=== PATIENT | male | born 1975 | race Caucasian/White ===

== ENCOUNTER 2018-10-22 13:01 | Emergency (ER) | payer MEDICAID ==
[~2018-10-22] VITALS: Ht 185.4 cm; Wt 159.6 kg
--- NOTE | 2018-10-22 14:15 | NUR ---
PT REPORTS HE GETS HIS MEDS FROM [facility] ON [facility] [phone]. [facility] WILL FAX THE MEDS.
[2018-10-22] MEDS ORDERED: LORazepam 2 mg/ml vial IM ONE (14:35)
--- NOTE | 2018-10-22 14:45 | NUR ---
Patient was standing at opening of room, sweating profusely and anxious. RN spoke with Dr Mcbride who ordered I.M. Ativan. Patient is c/o suicidal ideation and doesn't feel safe to go home. Dr Mcbride to place 179 on patient. Continue to monitor.
--- NOTE | 2018-10-22 15:30 | NUR ---
Patient feeling better post medication. Continue to monitor.
[2018-10-22 15:46] LABS: URINE AMPHETAMINE SCREEN NEGATIVE (Neg); URINE BARBITUATE SCREEN NEGATIVE (Neg); URINE BENZODIAZEPINES SCREEN POSITIVE (Neg); URINE CANNABINOID SCREEN POSITIVE (Neg); URINE COCAINE SCREEN NEGATIVE (Neg); URINE METHADONE SCREEN NEGATIVE (Neg); URINE OPIATE SCREEN NEGATIVE (Neg); URINE PHENCYCLIDINE SCREEN NEGATIVE (Neg)
[2018-10-22 15:55] LABS: BASOPHILS # (AUTO) 0.1 X10'3 (0-0.2); BASOPHILS % (AUTO) 0.6 % (0-1); EOSINOPHILS # (AUTO) 0.1 X10'3 (0-0.9); EOSINOPHILS % (AUTO) 1.1 % (0-6); HEMATOCRIT 43.2 % (42.0-52.0); HEMOGLOBIN 14.6 g/dl (14.0-17.9); LYMPHOCYTES # (AUTO) 1.8 X10'3 (1.1-4.8); LYMPHOCYTES % (AUTO) 14.6 % (21-51); MEAN CORPUSCULAR HEMOGLOBIN 28.8 PG (27.0-31.0); MEAN CORPUSCULAR HGB CONC 33.9 g/dL (33.0-36.5); MEAN CORPUSCULAR VOLUME 85.1 FL (78-98); MEAN PLATELET VOLUME 9.3 FL (7.4-10.4); MONOCYTES # (AUTO) 1.1 X10'3 (0-0.9); MONOCYTES % (AUTO) 9.2 % (2-12); NEUTROPHILS # (AUTO) 9.1 X10'3 (1.8-7.7); NEUTROPHILS % (AUTO) 74.5 % (42-75); PLATELET COUNT 286 X10'3 (140-440); RED BLOOD COUNT 5.08 X10'6 (4.70-6.10); RED CELL DISTRIBUTION WIDTH 13.7 % (11.5-14.5); WHITE BLOOD COUNT 12.2 X10'3 (4.5-11.0)
[2018-10-22] MEDS ORDERED: SERT50TA PO (16:07)
[2018-10-22] MEDS ORDERED: LORA1TAB PO (16:07)
[2018-10-22] MEDS ORDERED: CLON-529 PO (16:07)
[2018-10-22] MEDS ORDERED: OLAN5TAB5 PO (16:07)
[2018-10-22] MEDS ORDERED: LURA40TA3 PO (16:07)
[2018-10-22 16:09] LABS: ALANINE AMINOTRANSFERASE 53 U/L (12-78); ALBUMIN 4.2 G/DL (3.4-5.0); ALKALINE PHOSPHATASE 82 IU/L (46-116); ANION GAP 14 (8-16); ASPARTATE AMINO TRANSFERASE 65 U/L (10-37); BILIRUBIN,TOTAL 0.8 MG/DL (0.1-1.0); BLOOD UREA NITROGEN 6 MG/DL (7-18); BUN/CREATININE RATIO 5.8 (5.4-32.0); CHLORIDE 89 MMOL/L (99-107); CREATININE 1.03 MG/DL (0.60-1.10); ETHANOL < 0.010 GM/DL (0.0-0.010); GLUCOSE 107 MG/DL (70-104); SODIUM 129 MMOL/L (135-145); TOTAL CARBON DIOXIDE 25.7 MMOL/L (24-32); TOTAL PROTEIN 8.4 G/DL (6.4-8.2); eGFR 78 ML/MIN
[2018-10-22 16:13] LABS: ACETAMINOPHEN < 2.0 UG/ML (10-30)
[2018-10-22 16:15] LABS: POTASSIUM 2.8 MMOL/L (3.5-5.1)
[2018-10-22] MEDS ORDERED: potassium Cl 20 mEq SR tablet PO STA ×2 (16:17→17:51)
--- NOTE | 2018-10-22 16:50 | NUR ---
RN speaking to patient and patient started to disassociate for 30 seconds to a minute. Patient could not handle the stress of RN talking about his plan. Patient states he feels suicidal and doesn't feel safe to go home. Continue to monitor.
[2018-10-22] MEDS: normal saline 1000ML IV soln IVB ONE ×2 (18:08→19:47)
[2018-10-22] MEDS ORDERED: magnesium oxide 400mg tablet PO ONE (18:15)
[2018-10-22 18:21] LABS: MAGNESIUM 1.9 MG/DL (1.5-2.4)
[2018-10-22] MEDS ORDERED: diphenhydrAMINE 50 mg/ml inj IV ONE (19:30)
[2018-10-22] MEDS: cloNIDine 0.1 mg tablet PO SCH (21:09)
[2018-10-22] MEDS: LORazepam 1 MG tablet PO SCH (21:10)
[2018-10-22] MEDS: lurasidone 20mg tablet PO SCH (21:10)
[2018-10-22] MEDS: OLANZapine 5mg rapidly disint. tablet PO SCH (21:10)
--- NOTE | 2018-10-23 06:45 | NUR ---
pt resting in room quietly.
[2018-10-23] MEDS: cloNIDine 0.1 mg tablet PO SCH ×3 (07:07→20:44)
[2018-10-23] MEDS: LORazepam 1 MG tablet PO SCH ×3 (07:07→20:44)
[2018-10-23] MEDS: sertraline 50mg tablet PO SCH (07:09)
--- NOTE | 2018-10-23 07:15 | NUR ---
pt requesting Wilder for chronic back pain. Med is not currently ordered, will look into it. Addendum: 10/23/18 at 0820 by KRYSTEN pt states he takes Wilder 10-325 at home for chronic back pain. Will place med on [facility] med list. Addendum: 10/23/18 at 0908 by KRYSTEN Wilder ordered and given
[2018-10-23] MEDS ORDERED: potassium Cl 20 mEq SR tablet PO ONE (08:00)
[2018-10-23] MEDS ORDERED: HYDR-4353 PO (08:18)
--- NOTE | 2018-10-23 08:19 | NUR ---
pt talking to [facility] in room.
[2018-10-23] MEDS ORDERED: HYDROcodone/acetaminophen 10/325mg tab PO ONE (08:25)
--- NOTE | 2018-10-23 11:35 | NUR ---
pt came to nurses station asking for Ativan, states he's anxious. Notified pt Ativan not due util 1300. Pt verbalized understanding. Appears to be calm. Walked back to his bed.
--- NOTE | 2018-10-23 14:34 | NUR ---
pt came to nurses station and stated he was having some visual hallucinations. States the otero on the curtains are starting to look like people. Notified Dr. Jag MD stated we'll watch him for now. Pt notified to let RN know if hallucinations continue or get worse. Will continue to monitor pt.
--- NOTE | 2018-10-23 17:36 | NUR ---
pt requesting his home dose of Klonopin, states it works better for his anxiety than the Ativan. He usually just takes Ativan to supplement the Klonopin at home. Notified Dr. 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
[2018-10-23] MEDS: clonazePAM 1mg tablet PO PRN (17:48)
[2018-10-23] MEDS ORDERED: ibuprofen tablet 400 MG TABLET PO ONE (19:45)
[2018-10-23] MEDS: lurasidone 20mg tablet PO SCH (20:45)
[2018-10-23] MEDS: OLANZapine 5mg rapidly disint. tablet PO SCH (20:45)
[2018-10-24] MEDS: sertraline 50mg tablet PO SCH (06:55)
[2018-10-24] MEDS: cloNIDine 0.1 mg tablet PO SCH ×3 (06:55→21:01)
[2018-10-24] MEDS: LORazepam 1 MG tablet PO SCH ×3 (06:56→21:01)
--- NOTE | 2018-10-24 07:00 | NUR ---
Pt was noted to be up fidgeting with blankets and pacing next to bed. Pt requesting Ativan. Pts AM meds administered.
--- NOTE | 2018-10-24 07:55 | NUR ---
Pt reports chronic back pain and reports he is prescribed Bedford 10/325mg tab and is able to take one daily. Pt reports he takes in the AM as back is most painful after sleeping/laying on his back for period of time. Verified last refill was 09/09/18. Received VO for Bedford 10/325mg PO 1 tab daily and Motrin 600mg PO Q 8hrs PRN pain.
[2018-10-24] MEDS: HYDROcodone/acetaminophen 10/325mg tab PO SCH (08:53)
[2018-10-24] MEDS: ibuprofen 200mg tablet PO PRN ×2 (08:54→22:14)
[2018-10-24] MEDS: clonazePAM 1mg tablet PO PRN ×2 (11:02→19:33)
--- NOTE | 2018-10-24 12:50 | NUR ---
Reviewed pt K+ value of 2.[address] Rm. Pt to receive oral potassium and have lab redrawn in AM.
[2018-10-24] MEDS ORDERED: potassium Cl 20 mEq SR tablet PO STA (12:51)
--- NOTE | 2018-10-24 14:14 | NUR ---
PT RESTING ON RIGHT SIDE IN POC AT THIS TIME. FREQUENTLY CHANGING POSITIONS SIDE TO SIDE IN BED HE SAYS IS R/T HIS BACK PAIN. NOW UP TO BR. ATE ALL OF LUNCH.
--- NOTE | 2018-10-24 14:18 | NUR ---
PT UP TO RN DESK ASKING TO USE PHONE TO CALL HIS MOTHER. ATTEMPTED BUT STRAIGHT TO VOICEMAIL. HE LEFT ONE MESSAGE. REMAINS CALM AND COOPERATIVE.
--- NOTE | 2018-10-24 15:33 | NUR ---
RETRIEVED PTS CELL PHONES FROM [facility] TO OBTAIN NUMBERS FOR PT. PT WROTE NUMBERS DOWN AND PHONES RETURNED TO LOCKED UP BELONGINGS.
--- NOTE | 2018-10-24 18:58 | NUR ---
Pt's mother Kamille called from [facility] wanting to know if the pt was still going to be DC'd on Thursday. States that he will be living with father in a controlled/stable environment. Advised I did not have this information as of yet and I would be happy to find out and call her back. States she will hold off on purchasing ticket. Her phone is dying and would like a message back as to the plan. Phone number [phone].
--- NOTE | 2018-10-24 19:59 | NUR ---
Pt denies suicidal thoughts or intention at this time. States he moved to [facility] recently and had planned to go to school in the area. His therapist recently dropped him from care back in january. His move to the area and going through the process of beginning school made his anxiety increase and he did not have medications to assist him. States he is planning to move back with this mother and father in [place] where he will have better support. States his mother and father are good people. Denies visual or auditory hallucinations at this time.
--- NOTE | 2018-10-24 20:38 | NUR ---
Mother Nusrat called again wanting information as to the patients DC on Thursday. Advised I could not provide further information at this time and will give her a call back when more information is available to me.
--- NOTE | 2018-10-24 20:39 | NUR ---
Spoke to Duncan from [facility]. States the patient is on a 5150 which will Thursday. Packets have been sent to local mental health facilities for placement. There is no indication that he will be realeased from this facility on Thursday as the mother is wishing. Will call the mother to inform.
--- NOTE | 2018-10-24 20:40 | NUR ---
Called and left message for mother Nusrat to contact us in regards to unknown DC plan per previous note. [phone]
[2018-10-24] MEDS: OLANZapine 5mg rapidly disint. tablet PO SCH (21:01)
[2018-10-24] MEDS: lurasidone 20mg tablet PO SCH (21:01)
[2018-10-25] MEDS: clonazePAM 1mg tablet PO PRN ×2 (05:33→12:04)
[2018-10-25 08:29] LABS: ALBUMIN 3.7 G/DL (3.4-5.0); ANION GAP 10 (8-16); BLOOD UREA NITROGEN 6 MG/DL (7-18); BUN/CREATININE RATIO 5.6 (5.4-32.0); CALCIUM 8.5 MG/DL (8.5-10.1); CHLORIDE 102 MMOL/L (99-107); CREATININE 1.07 MG/DL (0.60-1.10); GLUCOSE 108 MG/DL (70-104); POTASSIUM 3.4 MMOL/L (3.5-5.1); SODIUM 140 MMOL/L (135-145); TOTAL CARBON DIOXIDE 28.2 MMOL/L (24-32); eGFR 75 ML/MIN
[2018-10-25] MEDS: HYDROcodone/acetaminophen 10/325mg tab PO SCH (09:02)
[2018-10-25] MEDS: LORazepam 1 MG tablet PO SCH ×3 (09:02→20:47)
[2018-10-25] MEDS: cloNIDine 0.1 mg tablet PO SCH ×3 (09:02→20:48)
[2018-10-25] MEDS: sertraline 50mg tablet PO SCH (09:03)
[2018-10-25 16:59] VITALS: BP 129/81
[2018-10-25] MEDS: ibuprofen 200mg tablet PO PRN (17:33)
[2018-10-25] MEDS: OLANZapine 5mg rapidly disint. tablet PO SCH (20:48)
[2018-10-25] MEDS: lurasidone 20mg tablet PO SCH (20:48)
[2018-10-25] MEDS ORDERED: CLON-527 PO (21:36)
[2018-10-25] MEDS ORDERED: IBUP-1985 PO (21:36)
== END 2018-10-25 21:40 ==
LOC: ER 13:02
DX: R45.851 Suicidal ideations (principal); E87.6 Hypokalemia; K46.9 Unspecified abdominal hernia without obstruction or gangrene; Z87.891 Personal history of nicotine dependence; Z60.2 Problems related to living alone; Z88.8 Allergy status to other drugs, medicaments and biological substances; Z79.899 Other long term (current) drug therapy
CPT/HCPCS: 36415; 80053; 80305; 80320; 80329; 83735; 84443; 85025; 96372; 96374; 99285; J1200; J2060; J7030; 80048

== ENCOUNTER 2018-10-25 20:37 | Inpatient (IN) | payer MEDICAID ==
[~2018-10-25] VITALS: Ht 182.9 cm; Wt 162.9 kg
[~2018-10-25 20:37] MED LIST: CLON-529 PO; HYDR-4353 PO; LORA1TAB PO; LURA40TA3 PO; OLAN5TAB5 PO; SERT50TA PO
[2018-10-25] MEDS ORDERED: loperamide 2mg capsule PO PRN (21:25)
[2018-10-25] MEDS ORDERED: LORazepam 1 MG tablet PO PRN (21:25)
[2018-10-25] MEDS ORDERED: IBUP-1985 PO (21:36)
[2018-10-25] MEDS ORDERED: CLON-527 PO (21:36)
[2018-10-25] MEDS: hydrOXYzine 25 MG tablet PO PRN (23:53)
[2018-10-26] MEDS ORDERED: clonazePAM 1mg tablet PO PRN (00:15)
[2018-10-26] MEDS ORDERED: HYDROcodone/acetaminophen 10/325mg tab PO SCH (02:00)
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
[2018-10-26] MEDS: LORazepam 1 MG tablet PO SCH ×2 (07:59→12:13)
[2018-10-26] MEDS: cloNIDine 0.1 mg tablet PO SCH ×3 (07:59→20:16)
[2018-10-26] MEDS: sertraline 50mg tablet PO SCH (07:59)
[2018-10-26] MEDS: HYDROcodone/acetaminophen 10/325mg tab PO SCH (08:00)
[2018-10-26] MEDS: nicotine 21mg patch - 24 hr TD SCH (08:01)
[2018-10-26 08:18] LABS: HEMOGLOBIN A1C 5.3 % (4.5-6.2)
[2018-10-26 08:22] LABS: CHOL/HDL RATIO 4.7 (0.00-4.99); CHOLESTEROL 118 MG/DL (0-200); HDL CHOLESTEROL 25 MG/DL (35-60); LDL CHOLESTEROL 75 MG/DL (50-100); TRIGLYCERIDES 142 MG/DL (20-135)
[2018-10-26] MEDS ORDERED: pneumococcal 23-VAL P-sac vacc 25 mcg/0.5ml vial IMVAC ONE (10:00)
--- NOTE | 2018-10-26 13:03 | NUR ---
Nursing Progress Note: Legal hold:5150 Client on involuntary status for DTS Why are they here:The patient is a 42 year old male who presents to the ED with complaints of depression. The patient states that he has been out of his medications for two weeks and reports that he is "suffering". The patient does not have a plan currently to kill himself. He states that he "does not feel safe". The patient notes that he has experienced decrease energy and he does not want to do things that he previously enjoyed. The patient states that he "doesn't have any hope". The patient did not want to wait for his next psychiatric appointment so he called the office and they told him to present to the ED. Assessment What happened today: Patient Slept until breakfast time and medications. Pt. is very polite and pleasant. States that he is just very tired. He went off his meds for two weeks and was hallucinations during his stay in ER, but denies AH/VH. Patient requesting prns due to anxiety when he feels like he is going to lose it. Patient appears very depressed. Plans on moving back to [place] to have family support. Patient is still distressed over his divorce in 2014 and becomes tearful while discussing end of marriage. Dr. Galloway ordered pulse oximetry during the night to keep track of 02 Sat. S/I, H/I: denies A/VH: denies Sleep: sleeps poorly, also reports does not wear cpap ADL's: does not keep up with ADLs Group attendance: no Were meds taken: yes Any med S/E none reported Mental Status Exam Appearance: tall bearded man, disheveled, oily hair, malodorous, poor hygeine, adequately dressed wearing green scrub gowns. Eye contact: good Behavior: cooperative, Speech: normal rate and rhythm Mood:anxious, depressed, hopeless Affect: constricted, withdrawn Thought process: linear Thought Content: talking about worrying about his mom, worrying about not caring for himself. Cognition: a/o x4 Insight:fair Judgment: poor Interventions PRN's used: Ativan Therapeutic interventions: 1:1 assessment, administered medications Restraints/seclusion/emergency medication: none Justification of Continued Inpatient Treatment: interrupt current crisis, maintain safety of patient. Continued therapeutic support and medication management needed to provide stabilization, prevent decompensation, decreasing risk to patient and readmittance.
--- NOTE | 2018-10-26 13:15 | NUR ---
Malnutrition consult: Patient is eating 100% of meals so far, good appetite, no edema, no weight history however patient reports weight loss recently of 34 or more lbs. Pt appears well nourished. No muscle weakness. No malnutrition at this time. Addendum: 10/26/18 at [address] Amended: Links added.
[2018-10-26] MEDS: ibuprofen 200mg tablet PO PRN (16:17)
[2018-10-26] MEDS: gabapentin 300mg capsule PO SCH (20:16)
[2018-10-26] MEDS: clonazePAM 1mg tablet PO SCH (20:17)
--- NOTE | 2018-10-26 20:31 | NUR ---
Nursing Progress Note: Legal hold:5150 Client on involuntary status for DTS Why are they here:The patient is a 42 year old male who presents to the ED with complaints of depression. The patient states that he has been out of his medications for two weeks and reports that he is "suffering". The patient does not have a plan currently to kill himself. He states that he "does not feel safe". The patient notes that he has experienced decrease energy and he does not want to do things that he previously enjoyed. The patient states that he "doesn't have any hope". The patient did not want to wait for his next psychiatric appointment so he called the office and they told him to present to the ED. Assessment What happened today: pt was laying in bed at change of shift. Pt denies s/i, continues to feel hopeless and depressed. He inquires if a surgery can be done to repair his hernia while he is here. Explained to pt that we can probably assist with making appts to have him see a doctor once his hold expires but it wouldnt be likely that he would go for surgery while he is on a hold. Pt understands, explained to pt I would pass this along in report. Pt reports feeling anxious but states it's "not to bad, medicine helps." Pt reports appetite is good and he slept "Ok" last night. SP02 is being monitored this shift as pt reports not wearing cpap at home due to uncomfortable mask. S/I, H/I: denies A/VH: denies Sleep: sleeps poorly, also reports does not wear cpap ADL's: does not keep up with ADLs Group attendance: no Were meds taken: yes Any med S/E none reported Mental Status Exam Appearance: tall bearded man, disheveled, oily hair, malodorous, poor hygeine, adequately dressed wearing street clothes Eye contact: good Behavior: cooperative, isolates to his room Speech: normal rate and rhythm Mood:anxious, depressed, hopeless Affect: constricted, withdrawn Thought process: linear Thought Content: taking care of himself better, getting hernia repaired Cognition: a/o x4 Insight:fair Judgment: poor Interventions PRN's used: Ativan Therapeutic interventions: 1:1 assessment, administered medications Restraints/seclusion/emergency medication: none Justification of Continued Inpatient Treatment: interrupt current crisis, maintain safety of patient. Continued therapeutic support and medication management needed to provide stabilization, prevent decompensation, decreasing risk to patient and readmittance. Addendum: 10/26/18 at 2143 by Martha Arora RN pt reports feeling hungry and anxious that medication changes wont help him sleep. Pt was encouraged to have snack in the group room but saw other patients in the group room and returned to his room. Pt had snack in his room.
[2018-10-26] MEDS ORDERED: lurasidone 20mg tablet PO SCH (21:00)
[2018-10-26] MEDS ORDERED: OLANZapine 5mg rapidly disint. tablet PO SCH (21:00)
[2018-10-26] MEDS ORDERED: OLANZapine 5mg rapidly disint. tablet PO ONE (22:15)
[2018-10-27] MEDS: hydrOXYzine 25 MG tablet PO PRN ×3 (04:33→17:02)
[2018-10-27] MEDS ORDERED: PALIPERIDONE 3 MG TAB.ER.24 PO SCH (06:56)
[2018-10-27] MEDS: mag hydrox/Alum hydrox/simeth 30ml oral suspension PO PRN (07:13)
[2018-10-27] MEDS: cloNIDine 0.1 mg tablet PO SCH ×3 (08:02→20:50)
[2018-10-27] MEDS: HYDROcodone/acetaminophen 10/325mg tab PO SCH (08:03)
[2018-10-27] MEDS: gabapentin 300mg capsule PO SCH ×2 (08:03→12:13)
[2018-10-27] MEDS: clonazePAM 1mg tablet PO SCH ×2 (08:04→19:53)
[2018-10-27] MEDS: sertraline 50mg tablet PO SCH (08:04)
[2018-10-27] MEDS: nicotine 21mg patch - 24 hr TD SCH (08:04)
[2018-10-27] MEDS: NICOTINE POLACRILEX 2 MG LOZENGE BC PRN ×2 (11:28→18:07)
[2018-10-27] MEDS: ibuprofen 200mg tablet PO PRN (12:13)
--- NOTE | 2018-10-27 17:29 | NUR ---
Nursing Progress Note: Received report via SBAR from KATARINA [facility] Legal hold:[id number] Client on involuntary status for DTS Why are they here:The patient is a 42 year old male who presents to the ED with complaints of depression. The patient states that he has been out of his medications for two weeks and reports that he is "suffering". The patient does not have a plan currently to kill himself. He states that he "does not feel safe". The patient notes that he has experienced decrease energy and he does not want to do things that he previously enjoyed. The patient states that he "doesn't have any hope". The patient did not want to wait for his next psychiatric appointment so he called the office and they told him to present to the ED. Assessment What happened today: Pt sitting on edge of bed reading bible at change of shift. He is pleasant and cooperative with care. He reports he has an upset stomach and requests something. Maalox and saltines were given with good relief. He denies S/I, A/H, V/H, states he realizes that "there is a lot to live for". He is excited about going to his dad's house after leaving here. He states the backyard is big and he is thinking of getting a dog for companionship. Pt reports feeling anxious but states it's "not too bad, medicine helps." Pt reports appetite is good and he slept "Ok" last night. SP02 was being monitored last shift as pt reports not wearing cpap at home due to uncomfortable mask. Lowest O2 recorded was 92%. He reports that he is anxious throughout the day and atarax and chamomile tea were given. He is concerned with thoughts of how things will be when he leaves here. Pt reports that he is spiritual and praying and reading the bible are therapeutic for him. Encouraged Pt to focus on the now and use prayer, breathing exercises to help with the feelings of anxiety. He agrees to this. S/I, H/I: denies A/VH: denies Sleep: naps intermittently throughout the day ADL's: does not keep up with ADLs Group attendance: no Were meds taken: yes Any med S/E none reported Mental Status Exam Appearance: tall bearded man, disheveled, oily hair, malodorous, poor hygeine, adequately dressed wearing street clothes Eye contact: good Behavior: cooperative, isolates to his room Speech: normal rate and rhythm Mood:anxious, depressed, hopeless Affect: constricted, withdrawn Thought process: linear Thought Content: taking care of himself better, getting hernia repaired Cognition: a/o x4 Insight:fair Judgment: poor Interventions PRN's used: Maalox, Atarax x2 Therapeutic interventions: 1:1 assessment, administered medications Restraints/seclusion/emergency medication: none Justification of Continued Inpatient Treatment: interrupt current crisis, maintain safety of patient. Continued therapeutic support and medication management needed to provide stabilization, prevent decompensation, decreasing risk to patient and readmittance.
--- NOTE | 2018-10-27 19:57 | NUR ---
Nursing Progress Note: Received report via SBAR from KATARINA HE Legal hold:[id number] Client on involuntary status for DTS Why are they here:The patient is a 42 year old male who presents to the ED with complaints of depression. The patient states that he has been out of his medications for two weeks and reports that he is "suffering". The patient does not have a plan currently to kill himself. He states that he "does not feel safe". The patient notes that he has experienced decrease energy and he does not want to do things that he previously enjoyed. The patient states that he "doesn't have any hope". The patient did not want to wait for his next psychiatric appointment so he called the office and they told him to present to the ED. Assessment What happened today: Pt was sitting in a chair in the [place] at change of shift awaiting a phone to call his mother. Pt reports anxiety 5/10, but states he is using coping skills to work on anxiety and is feeling positive that things will improve for him. Pt states his mother looked up invega and he is hopeful this will be a good medicine for him. He also reports his dad has a room in [place] for him when he is doing better. He reports his mood is a little better today, he also states he is noticing less joint pain in his shoulder and thinks this is due to the gabapentin. Pt continues to isolate in his room but does spend some time sitting in the [place] out of his room. Pt reports appetite is fair and he slept fairly well last night despite SpO2 monitoring. S/I, H/I: denies A/VH: denies Sleep: good trouble falling asleep ADL's: encouraged shower/hygiene, pt responds saying he will when he is feeling better Group attendance: no evening groups Were meds taken: yes Any med S/E none reported Mental Status Exam Appearance: tall bearded man, disheveled, oily hair, malodorous, poor hygeine, adequately dressed wearing street clothes Eye contact: good Behavior: cooperative, isolates to his room Speech: normal rate and rhythm Mood:anxious, depressed, hopeful Affect: constricted, Thought process: linear Thought Content: getting well so he can return to [place] Cognition: a/o x4 Insight:fair Judgment: poor Interventions PRN's used: none Therapeutic interventions: 1:1 assessment, administered medications Restraints/seclusion/emergency medication: none Justification of Continued Inpatient Treatment: interrupt current crisis, maintain safety of patient. Continued therapeutic support and medication management needed to provide stabilization, prevent decompensation, decreasing risk to patient and readmittance.
[2018-10-27] MEDS: gabapentin 400mg capsule PO SCH (20:50)
[2018-10-28] MEDS: hydrOXYzine 25 MG tablet PO PRN ×3 (01:16→19:16)
[2018-10-28] MEDS: ibuprofen 200mg tablet PO PRN ×2 (01:16→15:25)
[2018-10-28] MEDS: clonazePAM 1mg tablet PO SCH ×2 (07:25→19:15)
[2018-10-28] MEDS: HYDROcodone/acetaminophen 10/325mg tab PO SCH (07:27)
[2018-10-28] MEDS: sertraline 50mg tablet PO SCH (07:27)
[2018-10-28] MEDS: cloNIDine 0.1 mg tablet PO SCH ×3 (07:28→21:09)
[2018-10-28] MEDS: PALIPERIDONE 3 MG TAB.ER.24 PO SCH (07:28)
[2018-10-28] MEDS: gabapentin 400mg capsule PO SCH ×2 (07:28→13:15)
[2018-10-28] MEDS: nicotine 21mg patch - 24 hr TD SCH (07:30)
[2018-10-28 08:15] VITALS: BP 140/75
[2018-10-28] MEDS: NICOTINE POLACRILEX 2 MG LOZENGE BC PRN ×2 (09:13→14:04)
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
[2018-10-28 20:00] VITALS: BP 130/76
[2018-10-28] MEDS: gabapentin 300mg capsule PO SCH (21:09)
--- NOTE | 2018-10-29 00:24 | NUR ---
Nursing Progress Note: Received report via SBAR from KATARINA [employer] hold:[id number] Client on involuntary status for DTS Why are they here:The patient is a 42 year old male who presents to the ED with complaints of depression. The patient states that he has been out of his medications for two weeks and reports that he is "suffering". The patient does not have a plan currently to kill himself. He states that he "does not feel safe". The patient notes that he has experienced decrease energy and he does not want to do things that he previously enjoyed. The patient states that he "doesn't have any hope". The patient did not want to wait for his next psychiatric appointment so he called the office and they told him to present to the ED. Assessment What happened today: Pt was placed on a 5250, paperwork completed, pt signed. Pt said he had a tough evening due to a difficult conversation with his father. Pt requested klonopin which was given, due to the anxiety that the conversation caused. " I am not feeling suicidal right now, I am just really down, pretty depressed." "I guess that is life though." He is reserved in conversation, answers questions appropriately but does not go into any detail about the conversation between him and his father. "I am just trying to relax and hopefully get some sleep to have a better day tomorrow." S/I, H/I: denies A/VH: denies Sleep: see sleep assessment notation ADL's: encouraged shower/hygiene, pt responds saying he will when he is feeling better Group attendance: no evening groups Were meds taken: yes Any med S/E none reported, none observed Mental Status Exam Appearance: tall bearded man, disheveled, oily hair, malodorous, poor hygeine, adequately dressed wearing street clothes Eye contact: fair Behavior: cooperative, isolates to his room Speech: normal rate and rhythm Mood:anxious, depressed Affect: constricted, depressed Thought process: linear Thought Content: getting well so he can return to [facility] Cognition: a/o x4 Insight:fair Judgment: poor Interventions PRN's used: klonopin Therapeutic interventions: 1:1 assessment, administered medications, Q15 minute safety checks Restraints/seclusion/emergency medication: none Justification of Continued Inpatient Treatment: interrupt current crisis, maintain safety of patient. Continued therapeutic support and medication management needed to provide stabilization, prevent decompensation, decreasing risk to patient and readmittance.
[2018-10-29 07:00] VITALS: BP 135/81
[2018-10-29] MEDS: PALIPERIDONE 3 MG TAB.ER.24 PO SCH (07:19)
[2018-10-29] MEDS: nicotine 21mg patch - 24 hr TD SCH (07:19)
[2018-10-29] MEDS: sertraline 50mg tablet PO SCH (07:20)
[2018-10-29] MEDS: HYDROcodone/acetaminophen 10/325mg tab PO SCH (07:20)
[2018-10-29] MEDS: clonazePAM 1mg tablet PO SCH ×2 (07:20→18:58)
[2018-10-29] MEDS: gabapentin 300mg capsule PO SCH ×3 (07:20→20:32)
[2018-10-29] MEDS: cloNIDine 0.1 mg tablet PO SCH ×3 (07:20→20:32)
[2018-10-29] MEDS: hydrOXYzine 25 MG tablet PO PRN ×2 (11:49→18:18)
--- NOTE | 2018-10-29 15:06 | NUR ---
DISCHARGE PLANNING: Waiting for call back from telepsych doctor to confirm date and time of appointment
--- NOTE | 2018-10-29 15:16 | NUR ---
Nursing Progress Note: MALENAHOWARD Received report via SBAR from KATARINA [employer] hold:[id number] Client on involuntary status for DTS Why are they here: The patient is a 42 year old male who presents to the ED with complaints of depression. The patient states that he has been out of his medications for two weeks and reports that he is "suffering". The patient does not have a plan currently to kill himself. He states that he "does not feel safe". The patient notes that he has experienced decrease energy and he does not want to do things that he previously enjoyed. The patient states that he "doesn't have any hope". The patient did not want to wait for his next psychiatric appointment so he called the office and they told him to present to the ED. Assessment What happened today: Pt came up to functional tester typewriters at change of shift and requests medications reporting that he Woke up with a panic attack. Pt has poor hygiene and malodorous breath with profuse stringy eye discharge. He reports his eyes are not bothering him and it is normal for him when he wakes up. He reports pain at his hernia (07/19). Pt requested klonopin which was given, due to the anxiety. " I am not feeling suicidal right now, just really depressed." He requested to just hang out to have someone to talk to and this functional tester typewriters talked with him at length about his history and travels. Pt reports feeling abandoned by his family, recently spoke with his father who he reports rushed me off the phone because he made it seem like I was bothering him. I only have called him twice since Catherine been here. We discussed coping skills at length. He c/o constantly ruminating and feeling emotionally tired. 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 He reports fleeting thoughts of SI with plan to go far away so no one will find me and gently hang myself. He has feelings of hopelessness and helplessness that vary depending on the day and the situation. Mid morning pt c/o dizziness and shaky legs. VS were R18, O2 97% RA, 136/78, & P95. Pt encouraged to drink water and rest. After a nap pt c/o anxiety and requested PRN. Atarax administered. S/I, H/I: Confirms SI with plan, no intent A/VH: denies Sleep: 7hrs NOC ADL's: encouraged shower/hygiene Group attendance: Were meds taken: yes Any med S/E none reported, none observed Mental Status Exam Appearance: tall bearded man, disheveled, oily hair, malodorous, poor hygiene, street clothes, malodorous breath, eye discharge Eye contact: Mostly direct Behavior: cooperative, isolates to his room Speech: normal rate and rhythm Mood: anxious, depressed, hopeless Affect: depressed Thought process: linear Thought Content: His situation, current MH status Cognition: a/o x4 Insight: fair Judgment: poor Interventions PRN's used: Atarax Therapeutic interventions: 1:1 assessment, administered medications, Q15 minute safety checks Restraints/seclusion/emergency medication: none Justification of Continued Inpatient Treatment: Interrupt current crisis and maintain safety of patient. Continued therapeutic support and medication management needed to provide stabilization, prevent decompensation, decreasing risk to patient and readmittance.
[2018-10-29] MEDS: acetaminophen 325mg tablet PO PRN (15:35)
[2018-10-29] MEDS: NICOTINE POLACRILEX 2 MG LOZENGE BC PRN (16:36)
[2018-10-29 20:00] VITALS: BP 137/85
--- NOTE | 2018-10-29 20:59 | NUR ---
Nursing Progress Note: Received report via SBAR from KATARINA [employer] hold:[id number] Client on involuntary status for DTS Why are they here:The patient is a 42 year old male who presents to the ED with complaints of depression. The patient states that he has been out of his medications for two weeks and reports that he is "suffering". The patient does not have a plan currently to kill himself. He states that he "does not feel safe". The patient notes that he has experienced decrease energy and he does not want to do things that he previously enjoyed. The patient states that he "doesn't have any hope". The patient did not want to wait for his next psychiatric appointment so he called the office and they told him to present to the ED. Assessment What happened today: At the beginning of the shift pt reports extreme anxiety and feels "dizzy" he reports this is what happens when he is having a panic attack. He requests ativan, flex o writer operator explains he does not have ativan on his medication regimen. Pt has just had atarax 1 hour before. Picture Frames Inspector gave pt his HS klonopin. Pt accepts the klonopin but then asks if he can have a "double dose." Picture Frames Inspector explains that he can not and walks him to his room where he can lay down in the dark to help calm down. Pt is able to calm down and talk to flex o writer operator. He explains that he has been on klonopin for the past 7 years and it is the "bane of my existence." He says that he has tried coming off of it before but it is very hard and short tapers just "aren't an option" He explains that he should be tapered over 18 to 24 months on liquid doses and mentions a tapered regimen from the [place] that he thinks would work that involves ativan. PT says that when he first started klonopin no one ever told him it would be addictive and the first time he had ativan he said, "it was an automatic addiction." Pt says he was feeling suicidal this morning and still feels hopeless and helpless. "I have had previous attempts at suicide before." "I used to own guns and that scared me, I got them taken away by police." Pt states, "I just have to get through it I guess, I believe in Dinesh and the bible, I'm not sure why I'm here." Pt closes his eyes to talk most of the conversation. S/I, H/I: passive SI A/VH: denies Sleep: see sleep assessment notation ADL's: encouraged shower/hygiene, pt responds saying he will when he is feeling better Group attendance: no evening groups Were meds taken: yes Any med S/E none reported, none observed Mental Status Exam Appearance: tall bearded man, disheveled, oily hair, malodorous, poor hygeine, adequately dressed wearing street clothes Eye contact: closes his eyes most of the conversation Behavior: cooperative, walks the unit or lays in bed Speech: normal rate and rhythm Mood:anxious, depressed Affect: hopeless, depressed Thought process: linear Thought Content: focused on klonopin taper Cognition: a/o x4 Insight:fair Judgment: poor Interventions PRN's used: NA Therapeutic interventions: 1:1 assessment, administered medications, Q15 minute safety checks Restraints/seclusion/emergency medication: none Justification of Continued Inpatient Treatment: interrupt current crisis, maintain safety of patient. Continued therapeutic support and medication management needed to provide stabilization, prevent decompensation, decreasing risk to patient and readmittance.
[2018-10-29] MEDS: ibuprofen 200mg tablet PO PRN (22:05)
[2018-10-30] MEDS: hydrOXYzine 25 MG tablet PO PRN ×2 (02:12→16:58)
[2018-10-30] MEDS: acetaminophen 325mg tablet PO PRN ×2 (02:14→12:29)
[2018-10-30 07:00] VITALS: BP 141/90
[2018-10-30] MEDS: nicotine 21mg patch - 24 hr TD SCH (07:40)
[2018-10-30] MEDS: sertraline 50mg tablet PO SCH (07:41)
[2018-10-30] MEDS: clonazePAM 1mg tablet PO SCH ×2 (07:41→19:28)
[2018-10-30] MEDS: gabapentin 300mg capsule PO SCH ×3 (07:41→19:32)
[2018-10-30] MEDS: HYDROcodone/acetaminophen 10/325mg tab PO SCH (07:42)
[2018-10-30] MEDS: PALIPERIDONE 3 MG TAB.ER.24 PO SCH (07:42)
[2018-10-30] MEDS: NICOTINE POLACRILEX 2 MG LOZENGE BC PRN ×2 (09:46→18:00)
--- NOTE | 2018-10-30 10:32 | NUR ---
Initial: Pt PO 100% meals meeting needs. TG 142; would benefit from anti-hyperlipidemic per MD approval. Unable to reach RN on floor. [facility] 10/28. Will continue to monitor. Rec: 1. continue carb controlled diet 2. anti-hyperlipidemic per MD approval w/ TG 142 3. routine bowel care 4. wt per rx Addendum: 10/30/18 at [address] Amended: Links added.
[2018-10-30] MEDS: cloNIDine 0.1 mg tablet PO SCH ×2 (12:30→19:32)
[2018-10-30] MEDS: HYDROcodone/acetaminophen 10/325mg tab PO PRN ×2 (13:19→19:37)
--- NOTE | 2018-10-30 15:57 | NUR ---
Nursing Progress Note: MIGUEL Received report via SBAR from KATARINA [employer] hold:[id number] Client on involuntary status for DTS Why are they here: The patient is a 42 year old male who presents to the ED with complaints of depression. The patient states that he has been out of his medications for two weeks and reports that he is "suffering". The patient does not have a plan currently to kill himself. He states that he "does not feel safe". The patient notes that he has experienced decrease energy and he does not want to do things that he previously enjoyed. The patient states that he doesn't have any hope". The patient did not want to wait for his next psychiatric appointment so he called the office and they told him to present to the ED. Assessment What happened today: Pt sitting in the hallway at change of shift. Pt is disheveled but pleasant. He reports pain at his hernia (8/10). He reports feeling better today but denies feeling safe enough to make a solid discharge plan. He does report that he will probably go home with his parents. Pt seems to perseverate on is hernia and his pain medications. Yesterday pt spoke of feeling addicted to klonopin and [place] and wanting to titrate off of them, today he is requesting more [place] and PRN klonopin. He reports he had a good talk with Dr Galloway today and he was giddy when speaking about getting his [place] increased from QD to TID. S/I, H/I: Confirms fleeting thoughts of SI with plan, no intent A/VH: denies Sleep: 5.5hrs NOC ADL's: encouraged shower/hygiene, laundry Group attendance: No Were meds taken: yes Any med S/E none reported, none observed Mental Status Exam Appearance: tall bearded man, disheveled, oily hair, malodorous, poor hygiene, street clothes, malodorous breath Eye contact: Mostly direct, closes eyes as if he is pained Behavior: cooperative, isolates to his room Speech: normal rate and rhythm Mood: anxious, depressed, hopeless Affect: depressed Thought process: linear Thought Content: His situation, current MH status Cognition: a/o x4 Insight: fair Judgment: poor Interventions PRN's used: [place] X2 (AM, noon), Tylenol x1, nicotine luther x1 Therapeutic interventions: 1:1 assessment, administered medications, Q15 minute safety checks Restraints/seclusion/emergency medication: none Justification of Continued Inpatient Treatment: Interrupt current crisis and maintain safety of patient. Continued therapeutic support and medication management needed to provide stabilization, prevent decompensation, decreasing risk to patient and readmittance.
[2018-10-30 19:00] VITALS: BP 125/84
--- NOTE | 2018-10-31 04:28 | NUR ---
Nursing Progress Note: Received report via SBAR from KATARINA [employer] hold:[id number] Client on involuntary status for DTS Why are they here:The patient is a 42 year old male who presents to the ED with complaints of depression. The patient states that he has been out of his medications for two weeks and reports that he is "suffering". The patient does not have a plan currently to kill himself. He states that he "does not feel safe". The patient notes that he has experienced decrease energy and he does not want to do things that he previously enjoyed. The patient states that he "doesn't have any hope". The patient did not want to wait for his next psychiatric appointment so he called the office and they told him to present to the ED. Assessment What happened today: Pt walks the unit slowly with a downcast look on his face. He makes occasional eye contact but closes his eyes or looks at the floor when speaking. He tells specification writer that he is in pain and has had "hard day." He then asks," can I get dosed early?" Pt is cooperative with 1:1 assessment and medication compliant. He requests prn norco at bedtime for hernia pain. Once he lays down he then tells specification writer he feels like he is having palpitations. EKG was ordered and done. signed off on EGK which was WNL. He is pleasant but sad in conversation. S/I, H/I: passive SI A/VH: denies Sleep: see sleep assessment notation ADL's: encouraged shower/hygiene, pt responds saying he will when he is feeling better Group attendance: no evening groups Were meds taken: yes Any med S/E none reported, none observed Mental Status Exam Appearance: tall bearded man, disheveled, oily hair, malodorous, poor hygeine, adequately dressed wearing street clothes Eye contact: closes his eyes most of the conversation Behavior: cooperative, walks the unit or lays in bed Speech: normal rate and rhythm Mood:anxious, depressed Affect: hopeless, depressed Thought process: linear Thought Content: WNL Cognition: a/o x4 Insight:fair Judgment: poor Interventions PRN's used: norco Therapeutic interventions: 1:1 assessment, administered medications, Q15 minute safety checks Restraints/seclusion/emergency medication: none Justification of Continued Inpatient Treatment: interrupt current crisis, maintain safety of patient. Continued therapeutic support and medication management needed to provide stabilization, prevent decompensation, decreasing risk to patient and readmittance.
[2018-10-31] MEDS: acetaminophen 325mg tablet PO PRN (05:44)
[2018-10-31] MEDS: nicotine 21mg patch - 24 hr TD SCH (07:41)
[2018-10-31] MEDS: clonazePAM 1mg tablet PO SCH ×2 (07:41→20:19)
[2018-10-31] MEDS: gabapentin 300mg capsule PO SCH ×3 (07:42→20:19)
[2018-10-31] MEDS: PALIPERIDONE 3 MG TAB.ER.24 PO SCH (07:42)
[2018-10-31] MEDS: sertraline 50mg tablet PO SCH (07:42)
[2018-10-31] MEDS: cloNIDine 0.1 mg tablet PO SCH ×3 (07:42→21:00)
[2018-10-31] MEDS: HYDROcodone/acetaminophen 10/325mg tab PO PRN ×3 (07:57→20:19)
[2018-10-31 08:38] VITALS: BP 116/77
[2018-10-31] MEDS: hydrOXYzine 25 MG tablet PO PRN (12:34)
--- NOTE | 2018-10-31 18:11 | NUR ---
Nursing Progress Note: Received report via SBAR from KATARINA [employer] hold:[id number] Client on involuntary status for DTS Why are they here:The patient is a 42 year old male who presents to the ED with complaints of depression. The patient states that he has been out of his medications for two weeks and reports that he is "suffering". The patient does not have a plan currently to kill himself. He states that he "does not feel safe". The patient notes that he has experienced decrease energy and he does not want to do things that he previously enjoyed. The patient states that he "doesn't have any hope". The patient did not want to wait for his next psychiatric appointment so he called the office and they told him to present to the ED. Assessment What happened today: Pt is resting in his bed peacefully at change of shift. He is pleasant and cooperative with care and takes all his medications without incident. He reports having increased pain in his abdomen related to his large hernia, PRN [place] was given twice for this. He also reported having anxious feelings and PRN Atarax was given for this. Also encouraged Pt to utilize breathing, meditation and distraction to help with his feelings of anxiety. He stated he would try this. Pt was also given chamomile and peppermint tea. In conversation, he voiced some aggitation about an event that occured on another shift with some of the staff talking loudly outside of his room. He used explitives, but was non-threatening and maintained his soft voice. He reports that the light is "hard on his eyes" and this is why he keeps them closed often and looks down during conversation. He eats his meals in the community room but does not participate in group. He states that he is excited about his meeting tomorrow but reports anxiety that he will have no one to accompany him. He states it will be after 1500 tomorrow. S/I, H/I: denies A/VH: denies Sleep: Naps often throughout the day ADL's: independent, states he took a shower yesterday Group attendance: no Were meds taken: yes Any med S/E none reported, none observed Mental Status Exam Appearance: tall bearded man, disheveled, oily hair, poor hygeine, adequately dressed wearing street clothes Eye contact: closes his eyes most of the conversation, intermittently direct Behavior: cooperative, walks the unit or lays in bed Speech: normal rate and rhythm, soft Mood: anxious, depressed Affect: hopeless, depressed Thought process: linear Thought Content: WNL Cognition: a/o x4 Insight:fair Judgment: poor Interventions PRN's used: norco, atarax Therapeutic interventions: 1:1 assessment, administered medications, Q15 minute safety checks Restraints/seclusion/emergency medication: none Justification of Continued Inpatient Treatment: interrupt current crisis, maintain safety of patient. Continued therapeutic support and medication management needed to provide stabilization, prevent decompensation, decreasing risk to patient and readmittance.
[2018-10-31 19:57] VITALS: BP 123/79
--- NOTE | 2018-11-01 00:07 | NUR ---
Nursing Progress Note: Received report via SBAR from KATARINA [employer] hold:[id number] Client on involuntary status for DTS Why are they here:The patient is a 42 year old male who presents to the ED with complaints of depression. The patient states that he has been out of his medications for two weeks and reports that he is "suffering". The patient does not have a plan currently to kill himself. He states that he "does not feel safe". The patient notes that he has experienced decrease energy and he does not want to do things that he previously enjoyed. The patient states that he "doesn't have any hope". The patient did not want to wait for his next psychiatric appointment so he called the office and they told him to present to the ED. Assessment What happened today: Pt ambulating in halls at start of shift. His affect is downcast and sad. He denies SI " not for the last couple of days" When asked about depression he says that is "normal for me, I am always depressed." He says he has been helped by being here. He is pleasant but sad in conversation. Pt is curious about upcoming hearing. "I have a place to go I can stay with my dad. I'm not saying I'm 100% cured I am always depressed." Encouraged pt to tell them at the hearing tomorrow. Also informed that if the hold is upheld it does not mean he will be her for the entire 14 days. Pt verbalized understanding. Pt is cooperative with 1:1 assessment and medication compliant. He requests prn norco at bedtime for hernia pain. Pt has Abd hernia almost the size of a soccer ball.. Pt says he plans to have it "taken care of " after discharge. S/I, H/I: denies A/VH: denies Sleep: asleep at this time ADL's: encouraged shower/hygiene, pt responds saying he will when he is feeling better Group attendance: no evening groups Were meds taken: yes Any med S/E none reported, none observed Mental Status Exam Appearance: tall bearded man, disheveled, oily hair, malodorous, poor hygiene, adequately dressed wearing street clothes Eye contact: good Behavior: cooperative, walks the unit or lays in bed Speech: normal rate and rhythm Mood:anxious, depressed Affect: hopeless, depressed Thought process: linear Thought Content: hearing tomorrow Cognition: a/o x4 Insight:fair Judgment: poor Interventions PRN's used: alireza Therapeutic interventions: 1:1 assessment, administered medications, Q15 minute safety checks Restraints/seclusion/emergency medication: none Justification of Continued Inpatient Treatment: interrupt current crisis, maintain safety of patient. Continued therapeutic support and medication management needed to provide stabilization, prevent decompensation, decreasing risk to patient and readmittance.
[2018-11-01 07:34] VITALS: BP 141/89
[2018-11-01] MEDS: nicotine 21mg patch - 24 hr TD SCH (08:14)
[2018-11-01] MEDS: clonazePAM 1mg tablet PO SCH ×2 (08:15→20:01)
[2018-11-01] MEDS: sertraline 50mg tablet PO SCH (08:15)
[2018-11-01] MEDS: gabapentin 300mg capsule PO SCH ×3 (08:15→20:01)
[2018-11-01] MEDS: cloNIDine 0.1 mg tablet PO SCH ×3 (08:15→20:01)
[2018-11-01] MEDS: PALIPERIDONE 3 MG TAB.ER.24 PO SCH (08:15)
[2018-11-01] MEDS: HYDROcodone/acetaminophen 10/325mg tab PO PRN ×3 (08:23→20:46)
[2018-11-01] MEDS: polyvinyl alcohol ophthalmic drops 15ml bottle EACHEYE PRN (10:46)
[2018-11-01] MEDS: mag hydrox/Alum hydrox/simeth 30ml oral suspension PO PRN (11:43)
[2018-11-01] MEDS: hydrOXYzine 25 MG tablet PO PRN ×2 (12:10→20:01)
[2018-11-01] MEDS: acetaminophen 325mg tablet PO PRN (13:16)
[2018-11-01] MEDS: ibuprofen 200mg tablet PO PRN (13:57)
--- NOTE | 2018-11-01 18:16 | NUR ---
Nursing Progress Note: Received report via SBAR from KATARINA [employer] hold:[id number] Client on voluntary status Why are they here:The patient is a 42 year old male who presents to the ED with complaints of depression. The patient states that he has been out of his medications for two weeks and reports that he is "suffering". The patient does not have a plan currently to kill himself. He states that he "does not feel safe". The patient notes that he has experienced decrease energy and he does not want to do things that he previously enjoyed. The patient states that he "doesn't have any hope". The patient did not want to wait for his next psychiatric appointment so he called the office and they told him to present to the ED. Assessment What happened today: Patient awoke in a groggy state. He reports that he did not sleep well last night. Patient reports having a headache today and has received [place], hydroxyzine, Tylenol, Motrin. Has been laying in bed or sleeping most of the day. Expecting visit from Crime Specialist today. S/I, H/I: denies A/VH: denies Sleep: 5.25 hrs NOC. Napped during daytime. ADL's: independent Group attendance: no Were meds taken: yes Any med S/E none reported, none observed Mental Status Exam Appearance: tall bearded man, disheveled, oily hair, poor hygeine, adequately dressed wearing street clothes Eye contact: closes his eyes most of the conversation, intermittently direct Behavior: cooperative, walks the unit or lays in bed Speech: normal rate and rhythm, soft Mood: anxious, depressed Affect: Blunted. Thought process: linear Thought Content: Pain and stress. Cognition: a/o x4 Insight:fair Judgment: poor Interventions PRN's used: norco, atarax, Tylenol, Motrin Therapeutic interventions: 1:1 assessment, active listening. Medication education/administration/ monitoring. Contract for safety. Q15 minute safety checks Restraints/seclusion/emergency medication: none Justification of Continued Inpatient Treatment: interrupt current crisis, maintain safety of patient. Continued therapeutic support and medication management needed to provide stabilization, prevent decompensation, decreasing risk to patient and readmittance.
[2018-11-01 20:13] VITALS: BP 132/99
[2018-11-01] MEDS: Melatonin 3mg tablet PO SCH (20:30)
--- NOTE | 2018-11-01 23:42 | NUR ---
Nursing Progress Note: Received report via SBAR from KATARINA Bean Legal hold:[id number] Client on involuntary status for DTS Why are they here:The patient is a 42 year old male who presents to the ED with complaints of depression. The patient states that he has been out of his medications for two weeks and reports that he is "suffering". The patient does not have a plan currently to kill himself. He states that he "does not feel safe". The patient notes that he has experienced decrease energy and he does not want to do things that he previously enjoyed. The patient states that he "doesn't have any hope". The patient did not want to wait for his next psychiatric appointment so he called the office and they told him to present to the ED. Assessment What happened today: Pt ambulating in halls at start of shift. His affect is downcast and sad. He denies SI " not for the last couple of days" When asked about depression he says that is "normal for me, I am always depressed." He says he has been helped by being here. He is pleasant but sad in conversation. Pt happy about being voluntary. He talked about taking care of himself when discharged. Having his Hernia repaired. Taking his meds, following up with a [facility] clinic he has been to before in [place]. Pt joked that he needed a big shovel because "I have a lot of shit to do" Pt is cooperative with 1:1 assessment and medication compliant. He requests prn norco at bedtime for hernia pain. Pt has Abd hernia almost the size of a soccer ball. Pt says he plans to have it "taken care of " after discharge. S/I, H/I: denies A/VH: denies Sleep: asleep at this time ADL's: encouraged shower/hygiene, pt responds saying he will when he is feeling better Group attendance: no evening groups Were meds taken: yes Any med S/E none reported, none observed Mental Status Exam Appearance: tall bearded man, disheveled, oily hair, malodorous, poor hygiene, adequately dressed wearing street clothes Eye contact: good Behavior: cooperative, walks the unit or lays in bed Speech: normal rate and rhythm Mood:anxious, depressed Affect: hopeless, depressed Thought process: linear Thought Content: discharge Cognition: a/o x4 Insight:fair Judgment: poor Interventions PRN's used: alireza Therapeutic interventions: 1:1 assessment, administered medications, Q15 minute safety checks Restraints/seclusion/emergency medication: none Justification of Continued Inpatient Treatment: interrupt current crisis, maintain safety of patient. Continued therapeutic support and medication management needed to provide stabilization, prevent decompensation, decreasing risk to patient and readmittance.
[2018-11-02] MEDS: hydrOXYzine 25 MG tablet PO PRN ×2 (04:00→11:58)
[2018-11-02 07:00] VITALS: BP 123/79
[2018-11-02] MEDS: clonazePAM 1mg tablet PO SCH ×2 (07:44→20:08)
[2018-11-02] MEDS: nicotine 21mg patch - 24 hr TD SCH (07:44)
[2018-11-02] MEDS: gabapentin 300mg capsule PO SCH ×3 (07:45→20:08)
[2018-11-02] MEDS: HYDROcodone/acetaminophen 10/325mg tab PO PRN ×3 (07:45→20:08)
[2018-11-02] MEDS: cloNIDine 0.1 mg tablet PO SCH ×3 (07:45→20:09)
[2018-11-02] MEDS: sertraline 50mg tablet PO SCH (07:46)
[2018-11-02] MEDS: PALIPERIDONE 3 MG TAB.ER.24 PO SCH (07:46)
[2018-11-02] MEDS ORDERED: ALBU18HF2 INH (08:29)
[2018-11-02] MEDS ORDERED: albuterol 2.5 MG/3 ML nebule NEB PRN (08:40)
--- NOTE | 2018-11-02 17:44 | NUR ---
Nursing Progress Note: Received report via SBAR from KATARINA Ellsworth Legal hold: [id number] Client on voluntary status Why are they here:The patient is a 42 year old male who presents to the ED with complaints of depression. The patient states that he has been out of his medications for two weeks and reports that he is "suffering". The patient does not have a plan currently to kill himself. He states that he "does not feel safe". The patient notes that he has experienced decrease energy and he does not want to do things that he previously enjoyed. The patient states that he "doesn't have any hope". The patient did not want to wait for his next psychiatric appointment so he called the office and they told him to present to the ED. Assessment What happened today: Patient awoke with high anxiety, medications given. Pt. complaining about wheezing, resp. tx, and now patient c/o severe anxiety. prns utilized. Pt. had visit from [employer] attacher, and after praying with her he feels more hopeful. Pt. has been somatic this shift. S/I, H/I: denies A/VH: denies Sleep: 7.0 hrs NOC. Napped during daytime. ADL's: independent Group attendance: no Were meds taken: yes Any med S/E none reported, none observed Mental Status Exam Appearance: tall bearded man, disheveled, oily hair, poor hygeine, adequately dressed wearing street clothes Eye contact: closes his eyes most of the conversation, intermittently direct Behavior: Cooperative. Anxious. Speech: normal rate and rhythm, soft Mood: anxious, depressed Affect: Blunted. Thought process: linear Thought Content: Anxiety and pain. Cognition: a/o x4 Insight:fair Judgment: poor Interventions PRN's used: norco, atarax, Tylenol, Motrin Therapeutic interventions: 1:1 assessment, active listening. Medication education/administration/ monitoring. Contract for safety. Q15 minute safety checks Restraints/seclusion/emergency medication: none Justification of Continued Inpatient Treatment: interrupt current crisis, maintain safety of patient. Continued therapeutic support and medication management needed to provide stabilization, prevent decompensation, decreasing risk to patient and readmittance.
[2018-11-02 20:00] VITALS: BP 123/77
[2018-11-02] MEDS: Melatonin 3mg tablet PO SCH (20:08)
--- NOTE | 2018-11-03 01:53 | NUR ---
Nursing Progress Note: Received report via SBAR from KATARINA Bean Legal hold: Voluntary Client on voluntary status Why are they here:The patient is a 42 year old male who presents to the ED with complaints of depression. The patient states that he has been out of his medications for two weeks and reports that he is "suffering". The patient does not have a plan currently to kill himself. He states that he "does not feel safe". The patient notes that he has experienced decrease energy and he does not want to do things that he previously enjoyed. The patient states that he "doesn't have any hope". The patient did not want to wait for his next psychiatric appointment so he called the office and they told him to present to the ED. Assessment What happened today: The patient was isolating on his bed but later in the evening he did get up and watch TV briefly. He was cooperative with the evening assessment but was focused on somatic complaints and is requesting a test for Lupus. He is very disheveled and he has not showered for several days. He makes to attempt to even comb his hair when out with peers. He described his mood as "tired" and that his depression "ebbs and flows" He denies any psychotic symptoms and none were evident during the assessment. He was asked if he had attended the evening groups and he became defensive and went on how he was offended byh the staff while he attempted to attend groups. He was asked if he was having any suicidal thoughts he replied, "Maybe it would be better if I wasn't around...There are several ways to gently kill yourself...gently hanging myself". He did report that he feels his depressive symptoms had improved from admission. The patient is wanting to return to [place] and live with his father. S/I, H/I: Denies thoughts to harm others but endorses suicidal thoughts A/VH: denies Sleep: ADL's: The patient is not attending to his ADLs and has not showered in numerous days Group attendance: no Were meds taken: yes Any med S/E none reported, none observed Mental Status Exam Appearance: tall bearded man, disheveled, oily hair, poor hygeine, adequately dressed wearing street clothes Eye contact: closes his eyes most of the conversation, intermittently direct Behavior: Cooperative. Anxious. Speech: normal rate and rhythm, spontaneous Mood: anxious, depressed Affect: Blunted. Thought process: linear Thought Content: Anxiety and pain, somatic complaints and complaints about staff Cognition: fully oriented Insight: impaired Judgment: impaired Interventions PRN's used: Cristina Therapeutic interventions: 1:1 assessment, active listening. Medication education/administration/ monitoring. Contract for safety. Q15 minute safety checks, encouraged patient to shower Restraints/seclusion/emergency medication: none Justification of Continued Inpatient Treatment: interrupt current crisis, maintain safety of patient. Continued therapeutic support and medication management needed to provide stabilization, prevent decompensation, decreasing risk to patient and readmittance.
[2018-11-03 08:00] VITALS: BP 153/98
[2018-11-03] MEDS: sertraline 50mg tablet PO SCH (08:15)
[2018-11-03] MEDS: gabapentin 300mg capsule PO SCH ×2 (08:17→13:00)
[2018-11-03] MEDS: PALIPERIDONE 3 MG TAB.ER.24 PO SCH (08:17)
[2018-11-03] MEDS: cloNIDine 0.1 mg tablet PO SCH ×3 (08:17→21:05)
[2018-11-03] MEDS: clonazePAM 1mg tablet PO SCH ×2 (08:18→21:04)
[2018-11-03] MEDS: nicotine 21mg patch - 24 hr TD SCH (08:19)
[2018-11-03] MEDS: HYDROcodone/acetaminophen 10/325mg tab PO PRN ×3 (08:33→21:06)
[2018-11-03] MEDS: hydrOXYzine 25 MG tablet PO PRN (12:34)
--- NOTE | 2018-11-03 18:29 | NUR ---
Nursing Progress Note: Received report via SBAR from KATARINA Ellsworth Legal hold: Voluntary Client on voluntary status Why are they here:The patient is a 42 year old male who presents to the ED with complaints of depression. The patient states that he has been out of his medications for two weeks and reports that he is "suffering". The patient does not have a plan currently to kill himself. He states that he "does not feel safe". The patient notes that he has experienced decrease energy and he does not want to do things that he previously enjoyed. The patient states that he "doesn't have any hope". The patient did not want to wait for his next psychiatric appointment so he called the office and they told him to present to the ED. Assessment What happened today: Received Patient resting in bed w/o distress at change of shift. Pt awoke with high anxiety and pain , and medications given. Pt. enjoyed visit from cabin cleaning supervisor, and after praying with her he feels more hopeful. Pleasant and cooperative, and hopeful about moving in with step dad. Spent day in groups, listening to music and interacted with staff appropriately. S/I, H/I: denies A/VH: denies Sleep: Napped ADL's: independent Group attendance: no Were meds taken: yes Any med S/E none reported, none observed Mental Status Exam Appearance: tall bearded man, disheveled, oily hair, poor hygeine, adequately dressed wearing street clothes Eye contact: closes his eyes most of the conversation, intermittently direct Behavior: Cooperative. Anxious. Speech: normal rate and rhythm, soft Mood: anxious, depressed Affect: Blunted. Thought process: linear Thought Content: Anxiety and pain. Cognition: a/o x4 Insight:fair Judgment: poor Interventions PRN's used: norco, atarax Therapeutic interventions: 1:1 assessment, active listening. Medication education/administration/ monitoring. Contract for safety. Q15 minute safety checks Restraints/seclusion/emergency medication: none Justification of Continued Inpatient Treatment: interrupt current crisis, maintain safety of patient. Continued therapeutic support and medication management needed to provide stabilization, prevent decompensation, decreasing risk to patient and readmittance.
[2018-11-03 20:00] VITALS: BP 130/88
[2018-11-03] MEDS: gabapentin 400mg capsule PO SCH (21:05)
--- NOTE | 2018-11-03 21:28 | NUR ---
Nursing Note: Obtained new orders per Dr. Galloway, for Melatonin 6mg PRN insomnia, and Lidocaine Patch 5% PRN daily, for pt. chronic back pain. Will apply Lidocaine patch this HS per MD approval and endorse to AM shift.
[2018-11-03] MEDS: LIDOcaine 5% patch TP PRN (21:34)
--- NOTE | 2018-11-04 01:11 | NUR ---
Nursing Progress Note: Legal hold: Voluntary Client on voluntary status for DTS Report received from nurse with use of SBAR: KATARINA Edmondson Why are they here: The patient is a 42 year old male who self presented to the ED with complaints of depression. Pt. states that he has been out of his medications for two weeks and reports that he is "suffering". The patient does not have a plan currently to kill himself. He states that he "does not feel safe," and is having some paranoid thoughts. The patient notes that he has experienced decrease energy, does not want to do things that he previously enjoyed, and "doesn't have any hope". He did not want to wait for his next psychiatric appointment so he called the office and they told him to present to the ED. He has also been experiencing insomnia X 3-4 days prior to coming to the ER, has a hx of two previous suicide attempts by hanging, and a history of substance abuse. Assessment What has happened this shift: Pt. up in the hallway at the beginning of the shift, requesting soap, and appears to be somewhat paranoid, states, "I shook hands with my roommate and I am not sure what germs he has." He continues to periodically pace, and be somewhat restless and anxious throughout the shift. 1:1 completed at bedside, pt. denies S/I, states, "None today." However, he reports ongoing depression, and an anxiety level of 6/10. Pt. voices a desire to taper down his Clonazepam, and return to living with his parents because they are a good support system. When questioned by this designer writer regarding H/A, pt. denies however states, "If I don't sleep for 4-5 days, I start feeling psychotic." PRN [place] administered upon request per chronic lower back pain, also obtained an order for a Lidocaine Patch Q day, PRN, patch in place on rt. side of back. Pt. sitting up watching TV and interacting with staff, and finally retreated to bed at approximately 2330. S/I, H/I: Denies A/VH: Denies Sleep: Pt. repots chronic insomnia, scheduled Melatonin D/C'd r/t increase in Gabapentin and scheduled Clonidine at HS per MD Galloway, and pt's hx of sleep apnea. However, obtained PRN order for Melatonin at HS, pt. reported content, and will monitor. ADL's: Independent Group attendance: Pt. attends groups Were meds taken: Yes Any med S/E: Pt. states, "I start getting blotchy vision if I stay awake too long," will endorse to AM shift and continue to monitor. Mental Status Exam Appearance: Dressed appropriately, hair somewhat disheveled Eye contact: Good Behavior: Cooperative, restless, anxious, and fatigued Speech: Soft, monotonous Mood: Depressed and somewhat anxious Affect: Blunted Thought process: WNL Thought Content: Some paranoid thoughts regarding others and preoccupation with anxiety and depressed mood Cognition: A&O X4 Insight: Poor to Fair Judgment: Fair Interventions PRN's used: [place] and Lidocaine patch Therapeutic interventions: Introduced self and established rapport, maintained a safe and supportive environment, ensured contract for safety, monitored behaviors and need for intervention, monitored insomnia and pain and obtained orders for PRN Melatonin and Lidocaine patch, and maintained Q 15 min safety checks. Restraints/seclusion/emergency medication: N/A Justification of Continued Inpatient Treatment: Pt. continues to have depression and ongoing anxiety and requires medication adjustments and a safe and supportive environment. Per Dr. Galloway, he continues to be a high risk discharge.
--- NOTE | 2018-11-04 02:45 | NUR ---
Nursing Note: Pt. awoke with c/o pain and restlessness, PRN Atrax and Motrin administered, and pt. encouraged to try and get some more rest so he would not be tired throughout the day. Pt. voiced understanding, will monitor.
[2018-11-04] MEDS: hydrOXYzine 25 MG tablet PO PRN ×3 (02:50→22:17)
[2018-11-04] MEDS: ibuprofen 200mg tablet PO PRN ×3 (02:58→20:44)
[2018-11-04] MEDS: sertraline 50mg tablet PO SCH ×2 (07:40→08:00)
[2018-11-04] MEDS: clonazePAM 1mg tablet PO SCH ×2 (07:40→20:43)
[2018-11-04] MEDS: PALIPERIDONE 3 MG TAB.ER.24 PO SCH ×2 (07:40→20:43)
[2018-11-04] MEDS: cloNIDine 0.1 mg tablet PO SCH ×3 (07:40→20:43)
[2018-11-04] MEDS: nicotine 21mg patch - 24 hr TD SCH (07:41)
[2018-11-04 08:00] VITALS: BP 138/92
[2018-11-04] MEDS: venlafaxine XR 75mg capsule (Q24H) PO SCH (08:00)
[2018-11-04] MEDS: LIDOcaine 5% patch TP PRN (09:35)
[2018-11-04] MEDS: HYDROcodone/acetaminophen 10/325mg tab PO PRN ×3 (10:19→19:30)
--- NOTE | 2018-11-04 18:15 | NUR ---
Nursing Progress Note: Legal hold: Voluntary Client on voluntary status for DTS Report received from nurse with use of SBAR: KATARINA Edmondson Why are they here: The patient is a 42 year old male who self presented to the ED with complaints of depression. Pt. states that he has been out of his medications for two weeks and reports that he is "suffering". The patient does not have a plan currently to kill himself. He states that he "does not feel safe," and is having some paranoid thoughts. The patient notes that he has experienced decrease energy, does not want to do things that he previously enjoyed, and "doesn't have any hope". He did not want to wait for his next psychiatric appointment so he called the office and they told him to present to the ED. He has also been experiencing insomnia X 3-4 days prior to coming to the ER, has a hx of two previous suicide attempts by hanging, and a history of substance abuse. Assessment What has happened this shift: Patient reports back pain that is a 6 and requests pain med ([place]) be administered with morning medications. Patients takes all meds (including [place]) prior to breakfast. Medication changes made by prescriber are held until tomorrow. There will be a decrease in Zoloft, paliperdone switched to NOC, and patient will start Effexor, all neurontin changed to 2100. After breakfast he returns his room where he is observed resting. Moments later patients roommate reports to nurse that patient is in so much pain that he cannot get out of bed. Moments after that patient comes out of his room, steady gait, and requests his patch. About 15minutes after that patient requests Motrin for a headache. He states that this RN may want to check his BS because he is experiencing headaches after breakfast. Patients A1C is 5.3. Patient is encouraged to rest by staff. Patient calls tells this RN that tech is a Bch. Patient is discouraged against this language and encouraged to rest if he does not feel well. Patient expresses concern regarding medication changes. RN educated patient on each medication. S/I, H/I: Denies A/VH: Denies Sleep: 8.25 hrs NOC ADL's: Independent Group attendance: Pt. attends groups Were meds taken: Yes Any med S/E: no Mental Status Exam Appearance: disheveled Eye contact: direct Behavior: Cooperative, restless, anxious, needy Speech: Soft tone, normal rate and rhythm Mood: States that his depression comes and goes in waves, improvement in anxiety Affect: Blunted Thought process: linear Thought Content: preoccupation with nuermous somatic complaints Cognition: A&O X4 Insight: Fair Judgment: Fair Interventions PRN's used: Atarx Motrin, [place] and Lidocaine patch Therapeutic interventions: 1:1 therapeutic assessment, maintained safe therapeutic milieu, provided active listening with positive feedback, provided medication education as needed, monitored behaviors and need for intervention, Q 15 min safety checks. Restraints/seclusion/emergency medication: N/A Justification of Continued Inpatient Treatment: Pt. continues to have depression and ongoing anxiety. Continued therapeutic support and medication management needed to provide stabilization, prevent decompensation, decreasing risk to patient and readmittance.
[2018-11-04 19:46] VITALS: BP 123/82
[2018-11-04] MEDS: gabapentin 400mg capsule PO SCH (20:43)
[2018-11-04] MEDS ORDERED: PALIPERIDONE 3 MG TAB.ER.24 PO SCH (21:00)
[2018-11-04] MEDS: Melatonin 3mg tablet PO PRN (22:17)
--- NOTE | 2018-11-05 00:37 | NUR ---
Nursing Progress Note: Legal hold: Voluntary Client on voluntary status for DTS Report received from nurse with use of SBAR: KATARINA Edmondson Why are they here: The patient is a 42 year old male who self presented to the ED with complaints of depression. Pt. states that he has been out of his medications for two weeks and reports that he is "suffering". The patient does not have a plan currently to kill himself. He states that he "does not feel safe," and is having some paranoid thoughts. The patient notes that he has experienced decrease energy, does not want to do things that he previously enjoyed, and "doesn't have any hope". He did not want to wait for his next psychiatric appointment so he called the office and they told him to present to the ED. He has also been experiencing insomnia X 3-4 days prior to coming to the ER, has a hx of two previous suicide attempts by hanging, and a history of substance abuse. Assessment What has happened this shift: Pt. up in the hallway at the beginning of the shift, he continues to present as depressed, anxious, and focused on somatic s/s. He requests PRN [place], administered with effectiveness. Pt. continues to be restless and anxious throughout the shift. 1:1 completed at bedside, pt. denies S/I, but reports ongoing depression and anxiety. When this financial writer questioned pt. regarding the cause of his anxiety, he stated, "My current situation, and my Leonardo didn't come in today." When asked by this financial writer to elaborate on what he meant by 'his current situation,' pt. asked his roommate to leave the room and then reported to this financial writer that he had, had a rough day r/t to some perceived conflicts with staff. This financial writer provided active listening, and pt. admitted that he frequently over thinks/analyzes his reactions with others, he states, "I am a professional ruminator." As the evening progressed, pt. anxiety level appeared to increase along with somatic complaints, possibly r/t fatigue/insomnia. Pt. reported concern regarding his chronic abdominal hernia and his lack of a bowl movement today, stated, "I'm just not putting out what I put in." Prune juice administered and pt. encouraged not to push on hernia area, hernia rested on pillow for comfort while pt. laying in bed, and pt. voiced content. PRN Melatonin and Atrax administered upon request, will continue to monitor. S/I, H/I: Denies A/VH: Denies Sleep: Pt. continues to repot chronic insomnia, he requests PRN Melatonin at HS along with PRN Atrax r/t continued restlessness. ADL's: Independent Group attendance: Pt. attends groups, identifies coping mechanisms as reading scripture, visits from the chaplan, and positive thinking Were meds taken: Yes Any med S/E: None Mental Status Exam Appearance: Dressed appropriately, hair somewhat disheveled Eye contact: Good Behavior: Cooperative, restless, anxious, fatigued, and ongoing c/o somatic s/s Speech: Soft, monotonous Mood: Depressed and somewhat anxious Affect: Blunted Thought process: WNL Thought Content: Some paranoid thoughts regarding others (reports he was unable to finish his dinner because someone in the group room sneezed, and perceives conflict with some AM staff members), and preoccupation with anxiety, perceived conflicts with others, and somatic s/s Cognition: A&O X4 Insight: Poor to Fair Judgment: Fair Interventions PRN's used: [place], Motrin, Atrax, and Melatonin Therapeutic interventions: Maintained a safe and supportive environment, ensured contract for safety, provided medication education, provided active listening, monitored behaviors and need for intervention, and maintained Q 15 min safety checks. Restraints/seclusion/emergency medication: N/A Justification of Continued Inpatient Treatment: Pt. continues to have depression and ongoing anxiety and requires medication adjustments and a safe and supportive environment. Per Dr. Galloway, he continues to be a high risk discharge.
[2018-11-05 08:00] VITALS: BP 128/76
[2018-11-05] MEDS: nicotine 21mg patch - 24 hr TD SCH (08:05)
[2018-11-05] MEDS: sertraline 50mg tablet PO SCH (08:06)
[2018-11-05] MEDS: venlafaxine XR 75mg capsule (Q24H) PO SCH (08:06)
[2018-11-05] MEDS: cloNIDine 0.1 mg tablet PO SCH ×3 (08:06→21:09)
[2018-11-05] MEDS: clonazePAM 1mg tablet PO SCH ×2 (08:06→21:09)
[2018-11-05] MEDS: HYDROcodone/acetaminophen 10/325mg tab PO PRN ×3 (08:07→19:12)
[2018-11-05] MEDS: ibuprofen 200mg tablet PO PRN (11:04)
[2018-11-05] MEDS: hydrOXYzine 25 MG tablet PO PRN ×2 (11:04→16:29)
--- NOTE | 2018-11-05 14:27 | NUR ---
Reassessment: Pt PO 75-100% meals meeting needs. Weight up by 8 kg since admission, standing versus bedscale. [facility] 11/04. Will continue to monitor. Rec: 1. continue carb controlled diet 2. bowel care as needed 3. weekly weights Addendum: 11/05/18 at [address] Amended: Links added.
--- NOTE | 2018-11-05 16:07 | NUR ---
Nursing Progress Note: Legal hold: Voluntary Client on voluntary status for DTS Report received from nurse with use of SBAR: KATARINA Teixeira Why are they here: The patient is a 42 year old male who self presented to the ED with complaints of depression. Pt. states that he has been out of his medications for two weeks and reports that he is "suffering". The patient does not have a plan currently to kill himself. He states that he "does not feel safe," and is having some paranoid thoughts. The patient notes that he has experienced decrease energy, does not want to do things that he previously enjoyed, and "doesn't have any hope". He did not want to wait for his next psychiatric appointment so he called the office and they told him to present to the ED. He has also been experiencing insomnia X 3-4 days prior to coming to the ER, has a hx of two previous suicide attempts by hanging, and a history of substance abuse. Assessment What has happened this shift: Pt. up in and sitting in hallway at the beginning of the shift, he continues to present as depressed, anxious, and focused on hernia pain and appears depressed, fatigued and hopeless. Pt. continues to be restless and anxious throughout the shift. He complains about intrusiveness of roommate and irritation over some issues with other patients. he sits in hallway chair and asks for prn's often. Reports long history of coming to [place] to attend school, but becoming suicidal as things did not work out. He has hope of going to live with his step father in [place] who has offered to take him in. S/I, H/I: Denies A/VH: Denies Sleep: Naps ADL's: Independent Group attendance: yes, at times Were meds taken: Yes Any med S/E: None Mental Status Exam Appearance: disheveled Eye contact: Poor Behavior: Cooperative, restless, anxious, fatigued, and ongoing c/o somatic s/s Speech: Soft, monotonous Mood: Depressed and somewhat anxious Affect: Blunted Thought process: WNL Thought Content: hopelessness Cognition: A&O X4 Insight: Poor to Fair Judgment: Fair Interventions PRN's used: [place], Motrin, Atarax, Therapeutic interventions: Maintained a safe and supportive environment, ensured contract for safety, provided medication education, provided active listening, monitored behaviors and need for intervention, and maintained Q 15 min safety checks. Restraints/seclusion/emergency medication: N/A Justification of Continued Inpatient Treatment: Pt. continues to have depression and ongoing anxiety and requires medication adjustments and a safe and supportive environment. Per Dr. Galloway, he continues to be a high risk discharge.
[2018-11-05] MEDS: NICOTINE POLACRILEX 2 MG LOZENGE BC PRN (16:10)
[2018-11-05] MEDS: acetaminophen 325mg tablet PO PRN (18:00)
[2018-11-05] MEDS ORDERED: hydrOXYzine 25 MG tablet PO ONE (18:20)
[2018-11-05 19:00] VITALS: BP 125/74
[2018-11-05] MEDS: gabapentin 400mg capsule PO SCH (21:08)
[2018-11-05] MEDS: PALIPERIDONE 3 MG TAB.ER.24 PO SCH (21:09)
[2018-11-05] MEDS: magnesium hydroxide 30ml (MOM) UD suspension PO PRN (21:10)
[2018-11-06] MEDS: HYDROcodone/acetaminophen 10/325mg tab PO PRN ×3 (00:31→20:07)
--- NOTE | 2018-11-06 01:37 | NUR ---
Nursing Progress Note: Received report via SBAR from KATARINA Edmondson Legal hold: VOL Client on involuntary status for DTS Why are they here:The patient is a 42 year old male who presents to the ED with complaints of depression. The patient states that he has been out of his medications for two weeks and reports that he is "suffering". The patient does not have a plan currently to kill himself. He states that he "does not feel safe". The patient notes that he has experienced decrease energy and he does not want to do things that he previously enjoyed. The patient states that he "doesn't have any hope". The patient did not want to wait for his next psychiatric appointment so he called the office and they told him to present to the ED. Assessment What happened today: Pt sits in his room or stands outside of the nursing station looking down at the floor at shift change. He approaches marketing writer and requests PRN atarax and norco. He states his hernia is "really painful." Pt closes his eyes to talk most of the conversation and presents hopeless and flat. He states "I really haven't slept much here only 3 to 4 hours a night, maybe I could get a private room." He then tells marketing writer how he was annoyed by his roommate who has since discharged. He also said that the bathroom in his room is "too small to navigate." Sprayer Hand tells pt that if he is having trouble navigating the bathroom he can request to use the hallway restroom, he verbalizes understanding. At med pass, pt is compliant and asks "I know I had my 2 norcos for today, but after 12 can I have another?" Sprayer Hand encourages pt to try not to watch the clock and alert marketing writer if he is in pain. PT approaches nursing station with headphones on after 12 and he uses hand motions as if putting something in his mouth. Sprayer Hand asks what pt is asking for, and to please use his words. Pt then takes his headphones off and requests another norco. S/I, H/I: passive SI A/VH: denies Sleep: see sleep assessment notation ADL's: encouraged shower/hygiene, pt responds saying he will when he is feeling better Group attendance: no evening groups Were meds taken: yes Any med S/E none reported, none observed Mental Status Exam Appearance: tall bearded man, disheveled, oily hair, poor hygiene, adequately dressed wearing street clothes Eye contact: closes his eyes most of the conversation Behavior: cooperative, walks the unit or lays in bed Speech: normal rate and rhythm Mood:anxious, depressed Affect: hopeless, depressed, child-like Thought process: linear Thought Content: focused on PRNs Cognition: a/o x4 Insight:fair Judgment: poor Interventions PRN's used: norco, atarax, milk of mag Therapeutic interventions: 1:1 assessment, administered medications, Q15 minute safety checks Restraints/seclusion/emergency medication: none Justification of Continued Inpatient Treatment: interrupt current crisis, maintain safety of patient. Continued therapeutic support and medication management needed to provide stabilization, prevent decompensation, decreasing risk to patient and readmittance.
[2018-11-06] MEDS: hydrOXYzine 25 MG tablet PO PRN ×3 (06:02→18:08)
[2018-11-06 08:00] VITALS: BP 116/77
[2018-11-06] MEDS: clonazePAM 1mg tablet PO SCH ×2 (08:08→20:07)
[2018-11-06] MEDS: nicotine 21mg patch - 24 hr TD SCH (08:09)
[2018-11-06] MEDS: sertraline 50mg tablet PO SCH (08:09)
[2018-11-06] MEDS: venlafaxine XR 75mg capsule (Q24H) PO SCH (08:18)
[2018-11-06] MEDS: cloNIDine 0.1 mg tablet PO SCH ×3 (08:18→20:08)
[2018-11-06] MEDS: magnesium hydroxide 30ml (MOM) UD suspension PO PRN (10:37)
[2018-11-06] MEDS: clotrimazole topical cream 15gm tube TP SCH ×2 (15:36→20:34)
[2018-11-06 20:00] VITALS: BP 131/79
[2018-11-06] MEDS: gabapentin 400mg capsule PO SCH (20:07)
[2018-11-06] MEDS: docusate sod 100mg capsule PO SCH (20:08)
[2018-11-06] MEDS: PALIPERIDONE 3 MG TAB.ER.24 PO SCH (20:08)
--- NOTE | 2018-11-07 00:09 | NUR ---
Nursing Progress Note: Received report via SBAR from KATARINA Urena Legal hold: VOL Client on involuntary status for DTS Why are they here:The patient is a 42 year old male who presents to the ED with complaints of depression. The patient states that he has been out of his medications for two weeks and reports that he is "suffering". The patient does not have a plan currently to kill himself. He states that he "does not feel safe". The patient notes that he has experienced decrease energy and he does not want to do things that he previously enjoyed. The patient states that he "doesn't have any hope". The patient did not want to wait for his next psychiatric appointment so he called the office and they told him to present to the ED. Assessment What happened today: Pt walks the unit and hovers around the nursing station not approaching anyone at shift change. Pt meets with Dr. Rodriguez and afterward requests to spek to press writer. Pt cooperative with 1:1 assessment and medication compliant. He requests PRN norco for hernia pain, which was given to him. Pt states "I am hoping to just be able to move on from here." "Hopefully I can get my hernia taken care of, I am suppose to meet with someone tomorrow about it." PT states again that he wishes he had a room of his own, that his bathroom is too small, and that he feels paranoid about certain staff members. He feels that people "take too long to get my water, so what could they be doing to it, maybe they are just trying to mess with me." Energy Auditor assures pt that no staff member would purposefully try to upset him. PT then complains about other patients, that they are too loud and refers to them as "those people." He then goes on to re-explain how his schooling did not work out in [place] and how he is going to move back to [place] and how his hernia prevents him from functioning, "I can't even cook for myself because I can't bend forward enough to reach the stove." S/I, H/I: passive SI A/VH: denies Sleep: see sleep assessment notation ADL's: encouraged shower/hygiene, pt responds saying he will when he is feeling better Group attendance: no evening groups Were meds taken: yes Any med S/E none reported, none observed Mental Status Exam Appearance: tall bearded man, disheveled, oily hair, poor hygiene, adequately dressed wearing street clothes Eye contact: closes his eyes most of the conversation Behavior: cooperative, walks the unit or lays in bed Speech: normal rate and rhythm Mood:anxious, depressed, attention seeking. Affect: hopeless, depressed, child-like Thought process: linear Thought Content: focused on PRNs Cognition: a/o x4 Insight:fair Judgment: poor Interventions PRN's used: norco, atarax Therapeutic interventions: 1:1 assessment, administered medications, Q15 minute safety checks Restraints/seclusion/emergency medication: none Justification of Continued Inpatient Treatment: interrupt current crisis, maintain safety of patient. Continued therapeutic support and medication management needed to provide stabilization, prevent decompensation, decreasing risk to patient and readmittance.
[2018-11-07] MEDS: hydrOXYzine 25 MG tablet PO PRN ×2 (00:25→11:22)
[2018-11-07] MEDS: LIDOcaine 5% patch TP PRN (00:25)
[2018-11-07] MEDS: acetaminophen 325mg tablet PO PRN (04:40)
[2018-11-07] MEDS: HYDROcodone/acetaminophen 10/325mg tab PO PRN ×3 (06:55→19:15)
[2018-11-07 07:38] VITALS: BP 120/74
[2018-11-07] MEDS: ibuprofen 200mg tablet PO PRN ×2 (07:49→20:31)
[2018-11-07] MEDS: clonazePAM 1mg tablet PO SCH ×2 (07:52→19:15)
[2018-11-07] MEDS: docusate sod 100mg capsule PO SCH ×2 (07:52→19:15)
[2018-11-07] MEDS: cloNIDine 0.1 mg tablet PO SCH ×3 (07:54→20:31)
[2018-11-07] MEDS: sertraline 50mg tablet PO SCH (07:55)
[2018-11-07] MEDS ORDERED: venlafaxine XR 37.5mg cap (Q24H) PO SCH (08:00)
[2018-11-07] MEDS: nicotine 21mg patch - 24 hr TD SCH (08:00)
[2018-11-07] MEDS: clotrimazole topical cream 15gm tube TP SCH ×2 (08:48→20:34)
--- NOTE | 2018-11-07 17:45 | NUR ---
Nursing Progress Note: Received report via SBAR from Viv Estrada RN Legal hold: VOL Client on involuntary status for DTS Why are they here:The patient is a 42 year old male who presents to the ED with complaints of depression. The patient states that he has been out of his medications for two weeks and reports that he is "suffering". The patient does not have a plan currently to kill himself. He states that he "does not feel safe". The patient notes that he has experienced decrease energy and he does not want to do things that he previously enjoyed. The patient states that he "doesn't have any hope". The patient did not want to wait for his next psychiatric appointment so he called the office and they told him to present to the ED. Assessment What happened today: Pt. awake at start of shift. Pt. is anxious, hopeless/helpless. Pt. requests pain medication for 8/10 pain from his hernia. Pt. given [place] with minimal effect. Pt. requested more pain medication and given Ibuprofen with minimal effect. RN paged hospitalist to assess pt. Pt. took medications and ate all meals in the community room. 1:1 done at bedside. Pt. denies SI/HI, A/V H. Pt. reports anxiety and depression 7/10 from multiple stressors in his life such as getting his hernia repaired, getting housing, getting into school. Pt. reports that his hernia hampers his quality of life severely, even making it difficult to cook. Pt. c/o that the effexor is making him feel like a zombie, provider informed and pt. agreed to take it if medication changed to HS. Pt. spoke with certified medical coder in afternoon and appeared to be less depressed. Pt. states, "every time I speak with the certified medical coder in get a little more hopeful about taking my next steps". Pt. states, I really like learning how to grow my Pt. napped in the afternoon. S/I, H/I: Denies A/VH: Denies Sleep: Pt. napped x1 ADL's: Pt. showered today. Group attendance: No Were meds taken: Yes Any med S/E :Pt. reporting effexor making him feel lethargic. Mental Status Exam Appearance: tall bearded man, disheveled, adequately dressed wearing street clothes Eye contact: closes his eyes most of the conversation Behavior: cooperative, walks the unit or lays in bed Speech: normal rate and rhythm Mood:anxious, depressed with some brightening in the day. Affect: depressed. Thought process: linear Thought Content: Focused on hernia Cognition: a/o x4 Insight:fair Judgment: poor Interventions PRN's used: n[place] ataramavis Therapeutic interventions: 1:1 assessment, administered medications, Q15 minute safety checks Restraints/seclusion/emergency medication: none Justification of Continued Inpatient Treatment: interrupt current crisis, maintain safety of patient. Continued therapeutic support and medication management needed to provide stabilization, prevent decompensation, decreasing risk to patient and readmittance.
[2018-11-07 20:01] VITALS: BP 134/82
[2018-11-07] MEDS: gabapentin 400mg capsule PO SCH (20:31)
[2018-11-07] MEDS: PALIPERIDONE 3 MG TAB.ER.24 PO SCH (20:31)
[2018-11-07] MEDS ORDERED: venlafaxine XR 75mg capsule (Q24H) PO SCH (21:00)
[2018-11-07] MEDS: magnesium hydroxide 30ml (MOM) UD suspension PO PRN (21:12)
--- NOTE | 2018-11-08 03:32 | NUR ---
Nursing Progress Note: Received report via SBAR from KATARINA Reynolds Legal hold: VOL Client on involuntary status for DTS Why are they here:The patient is a 42 year old male who presents to the ED with complaints of depression. The patient states that he has been out of his medications for two weeks and reports that he is "suffering". The patient does not have a plan currently to kill himself. He states that he "does not feel safe". The patient notes that he has experienced decrease energy and he does not want to do things that he previously enjoyed. The patient states that he "doesn't have any hope". The patient did not want to wait for his next psychiatric appointment so he called the office and they told him to present to the ED. Assessment What happened today: Received pt asking CN to change his room back to 325 so he can have his own bathroom. Im not sleeping in that room Pt informed by CN that he could not move due to needing the other room for female admit. Pt requested norco which was given at 1914 and he requested motrin which was given at 2029. Both were for abd pain 7/10 from his abd. hernia. Pt affect flat to depressed. Pt requested MOM at 2100. Pt stated he had a bowel movement this am. Nurse questioned him about his BM and educating him that maybe MOM may not be needed but that he knows his body best and MOM was given. Pt began asking, are you a doctor? Pt then stated, he felt like this nurse was poking him with all the questions r/t his BMs and requested a nurse change. This nurse apolegized, but pt insistent on filing a complaint which the CN empowered him to do, but did explain that these questions were normal nursing questions. Pt returned to his room and sat on edge of his bed. S/I, H/I: passive SI A/VH: denies Sleep: see sleep assessment notation ADL's: encouraged shower/hygiene, pt responds saying he will when he is feeling better Group attendance: no evening groups Were meds taken: yes Any med S/E none reported, none observed Mental Status Exam Appearance: tall bearded man, disheveled, oily hair, poor hygiene, adequately dressed wearing street clothes Eye contact: closes his eyes most of the conversation Behavior: cooperative, walks the unit or lays in bed Speech: normal rate and rhythm Mood:anxious, depressed, attention seeking. Affect: hopeless, depressed, child-like Thought process: linear Thought Content: focused on PRNs Cognition: a/o x4 Insight:fair Judgment: poor Interventions PRN's used: geno lay Therapeutic interventions: 1:1 assessment, administered medications, Q15 minute safety checks Restraints/seclusion/emergency medication: none Justification of Continued Inpatient Treatment: interrupt current crisis, maintain safety of patient. Continued therapeutic support and medication management needed to provide stabilization, prevent decompensation, decreasing risk to patient and readmittance.
[2018-11-08 07:25] VITALS: BP 125/82
[2018-11-08] MEDS: docusate sod 100mg capsule PO SCH ×2 (07:50→20:21)
[2018-11-08] MEDS: clonazePAM 1mg tablet PO SCH ×2 (07:50→20:22)
[2018-11-08] MEDS: cloNIDine 0.1 mg tablet PO SCH ×3 (07:50→20:22)
[2018-11-08] MEDS: sertraline 50mg tablet PO SCH (07:50)
[2018-11-08] MEDS: HYDROcodone/acetaminophen 10/325mg tab PO PRN ×3 (07:53→20:23)
[2018-11-08] MEDS: clotrimazole topical cream 15gm tube TP SCH ×2 (07:53→20:43)
[2018-11-08] MEDS: nicotine 21mg patch - 24 hr TD SCH (07:57)
[2018-11-08] MEDS ORDERED: venlafaxine XR 37.5mg cap (Q24H) PO SCH (08:00)
[2018-11-08] MEDS: magnesium hydroxide 30ml (MOM) UD suspension PO PRN (09:57)
[2018-11-08] MEDS: hydrOXYzine 25 MG tablet PO PRN ×2 (09:57→22:12)
[2018-11-08 13:15] VITALS: BP 132/79
[2018-11-08] MEDS: NICOTINE POLACRILEX 2 MG LOZENGE BC PRN ×2 (13:54→18:08)
--- NOTE | 2018-11-08 16:14 | NUR ---
Nursing Progress Note: Received report via SBAR from Viv Augustine RN Legal hold: N/A Client is voluntary Why are they here:The patient is a 42 year old male who presents to the ED with complaints of depression. The patient states that he has been out of his medications for two weeks and reports that he is "suffering". The patient does not have a plan currently to kill himself. He states that he "does not feel safe". The patient notes that he has experienced decrease energy and he does not want to do things that he previously enjoyed. The patient states that he "doesn't have any hope". The patient did not want to wait for his next psychiatric appointment so he called the office and they told him to present to the ED. Assessment What happened today: When asked about depression, pt stated that "it's there but I'm motivated to get better and go home." Pt denied SI/HI/AH/VH, pt reported his anxiety level at a 6/10. Pt received routine Klonopin 2 mg and clonidine 0.1 mg with morning meds. Pt c/o 6/10 hernia pain at 0750 and asked for prn [place] 10/325 mg with good effect, requested [place] again at 1330. Pt c/o not sleeping well last night and reported that Effexor makes him sleepy in the morning. Pt stated he discussed not taking Effexor in the morning with psychiatrist. Pt had Effexor 37.5 mg scheduled this morning, he agreed to take it then discuss time with the psychiatrist. Education provided on how new antidepressant meds can initially cause drowsiness though this usually goes away after a couple of weeks. Pt expressed understanding. Pt requested pt advocate's number and it was provided; directed pt to brochures in the rec room. Pt requested something for increased anxiety at 0957 wand was given PRN Atarax 100 mg as well as MOM for c/o constipation with resulting moderate formed BM. Pt requested a nictotine lozenge at 1354. Before lunch, pt asked this RN to come and look at his hernia. Pt stated that it was red and itching and felt warm to touch so he was worried it was going to rupture. Assessed hernia, auscultated bowel sounds, hernia was soft, it did appear red and was somewhat warm to touch. Pt stated he had an abscess before and that it had ruptured after being red, warm to touch and feeling itchy. Reassured pt that an abscess was different from a hernia, that a hernia is not inflamed or full of pus. Explained that warmth and redness indicated that it had good perfusion, bowel sounds were present so things were moving. Reminded pt that he had taken a laxative this morning and it sounded like it was kicking in. Pt had a bowel movement a little while later, no further complaints or verbalized fears of rupture. S/I, H/I: Pt denies A/VH: Pt denies Sleep: Pt reported not sleeping well last night, attempted naps during the day, only napped for short periods of time. ADL's: Independent Group attendance: Pt declined to attend today, stating he was too tired. Were meds taken: yes Any med S/E: pt reported that Effexor makes him sleepy. Mental Status Exam Appearance: tall bearded man, disheveled, oily hair, poor hygiene, adequately dressed wearing street clothes Eye contact: Good Behavior: Makes frequent requests from staff, requires frequent reassurance, cooperative, spent majority of his time in his room today. Speech: Clear, audible Mood:anxious Affect: anxious, worried Thought process: perseverative Thought Content: obsessed over hernia, fears that it will rupture, fixates on pain, concerned he is constipated frequent requests for prn medications. Cognition: A/O X 4 Insight: Fair Judgment: Fair Interventions PRN's used: [place] 10/325 mg X 2, Atarax 100 mg, MOM, nicotine lozenge Therapeutic interventions: 1:1 assessment, establishment of rapport, active listening, therapeutic conversation, reassurance, positive reinforcement, anxiety management, medication administration/education/monitoring, Q15 minute safety checks. Restraints/seclusion/emergency medication: none Justification of Continued Inpatient Treatment: interrupt current crisis, maintain safety of patient. Continued therapeutic support and medication management needed to provide stabilization, prevent decompensation, decreasing risk to patient and readmittance.
[2018-11-08 20:00] VITALS: BP 143/88
[2018-11-08] MEDS: gabapentin 400mg capsule PO SCH (20:23)
[2018-11-08] MEDS: PALIPERIDONE 3 MG TAB.ER.24 PO SCH (20:25)
[2018-11-08] MEDS: LIDOcaine 5% patch TP PRN (20:43)
--- NOTE | 2018-11-08 21:01 | NUR ---
Nursing Progress Note: Received report via SBAR from KATARINA Fraser Legal hold: N/A Client is voluntary Why are they here:The patient is a 42 year old male who presents to the ED with complaints of depression. The patient states that he has been out of his medications for two weeks and reports that he is "suffering". The patient does not have a plan currently to kill himself. He states that he "does not feel safe". The patient notes that he has experienced decrease energy and he does not want to do things that he previously enjoyed. The patient states that he "doesn't have any hope". The patient did not want to wait for his next psychiatric appointment so he called the office and they told him to present to the ED. Assessment What happened today: When asked about depression, pt stated that "it's there but I'm motivated to get better and go home." Pt denied SI/HI/AH/VH, pt reported his anxiety level at a 07/19. Pt received routine Klonopin 2 mg and clonidine 0.1 mg with HS meds. Pt c/o 07/19 hernia pain at 1940 and asked for prn [place] 10/325 mg with good effect. S/I, H/I: Pt denies A/VH: Pt denies Sleep: Pt reported not sleeping well last night, attempted naps during the day, only napped for short periods of time. ADL's: Independent Group attendance: Pt declined to attend today, stating he was too tired. Were meds taken: yes Any med S/E: pt reported that Effexor makes him sleepy. Mental Status Exam Appearance: tall bearded man, disheveled, oily hair, poor hygiene, adequately dressed wearing street clothes Eye contact: Good Behavior: Makes frequent requests from staff, requires frequent reassurance, cooperative, spent majority of his time in his room today. Speech: Clear, audible Mood:anxious Affect: anxious, worried Thought process: perseverative Thought Content: obsessed over hernia, fears that it will rupture, fixates on pain, concerned he is constipated frequent requests for prn medications. Cognition: A/O X 4 Insight: Fair Judgment: Fair Interventions PRN's used: [place] 10/325 mg X 2, Atarax 100 mg, MOM, nicotine lozenge Therapeutic interventions: 1:1 assessment, establishment of rapport, active listening, therapeutic conversation, reassurance, positive reinforcement, anxiety management, medication administration/education/monitoring, Q15 minute safety checks. Restraints/seclusion/emergency medication: none Justification of Continued Inpatient Treatment: interrupt current crisis, maintain safety of patient. Continued therapeutic support and medication management needed to provide stabilization, prevent decompensation, decreasing risk to patient and readmittance.
[2018-11-09] MEDS: HYDROcodone/acetaminophen 10/325mg tab PO PRN ×3 (03:21→17:28)
[2018-11-09] MEDS: clotrimazole topical cream 15gm tube TP SCH ×2 (07:55→20:36)
[2018-11-09] MEDS: venlafaxine XR 75mg capsule (Q24H) PO SCH (07:55)
[2018-11-09] MEDS: clonazePAM 1mg tablet PO SCH ×2 (07:56→20:36)
[2018-11-09] MEDS: docusate sod 100mg capsule PO SCH ×2 (07:56→20:37)
[2018-11-09] MEDS: cloNIDine 0.1 mg tablet PO SCH ×3 (07:56→20:36)
[2018-11-09 08:00] VITALS: BP 126/76
[2018-11-09] MEDS: nicotine 21mg patch - 24 hr TD SCH (08:01)
[2018-11-09] MEDS: polyvinyl alcohol ophthalmic drops 15ml bottle EACHEYE PRN (10:57)
[2018-11-09] MEDS: diatr meglu/diatrizoate 30ml oral sol.-(3 dose) bottle PO SCH ×3 (11:30→17:13)
[2018-11-09 12:25] VITALS: BP 128/73
[2018-11-09] MEDS: hydrOXYzine 25 MG tablet PO PRN (12:25)
[2018-11-09] MEDS: cephalexin 500mg capsule PO SCH ×2 (13:44→20:37)
[2018-11-09] MEDS: acetaminophen 325mg tablet PO PRN ×2 (15:40→19:38)
--- NOTE | 2018-11-09 16:18 | NUR ---
Nursing Progress Note: Received report via SBAR from KATARINA Ellsworth Legal hold: N/A Client is voluntary Why are they here:The patient is a 42 year old male who presents to the ED with complaints of depression. The patient states that he has been out of his medications for two weeks and reports that he is "suffering". The patient does not have a plan currently to kill himself. He states that he "does not feel safe". The patient notes that he has experienced decrease energy and he does not want to do things that he previously enjoyed. The patient states that he "doesn't have any hope". The patient did not want to wait for his next psychiatric appointment so he called the office and they told him to present to the ED. Assessment What happened today: Pt rated his depression today at a 6/10 and his anxiety at a 7/10, he denies SI/HI/AH/VH. Pt requested prn Otto 10/325 mg for hernia pain at 0954, he was given his 2nd prn dose of Otto for the day as first dose had been taken on noc shift at 0321. This RN went to go get him his pain medicine. Immediately after taking pain med, pt stated that his vision was blurry and requested prn eye drops. Pt's Effexor was changed to 150 mg XR in the morning. Pt was hesitant to take the med as he states he spoke with the psychiatrist about taking it at night instead of in the morning because it makes him so tired. Explained that it was a 24 hour extended release medication so hopefully would not make him overly tired in the morning. Pt agreed to take the med. Hospitalist came to see the pt and ordered Keflex 500 mg PO Q 6H for cellulitis of skin over hernia. He also ordered a CT of the abdomen with a short prep oral contrast. Gastrograffin was ordered 10 ml mixed with 8 oz of H2O Q 3Hrs X 3. First dose was given at 1130, 2nd dose was given at 1430. Pt began c/o increased hernia area pain and had increased anxiety after 1st dose of gastrograffin. He requested prn Atarax 100 mg at 1225. At 1540 he began stating that he tried to have a bowel movement and strained and nothing came out. Pt stated that he wanted to take some more Otto. Explained that his symptoms were probably due to the contrast solution and that for that type of GI pain, Otto or NSAIDs may not be the best idea. Explained that while he may have some anticipated discomfort, it would be temporary and that the CT being done is important to make sure there are no acute issues with his hernia. Reminded pt that if he took his last dose of Otto now, he would have no further doses for the rest of the evening. Pt agreed to try some Tylenol instead. Pt then began complaining that a short while after taking the Effexor this morning he became extremely tired. Reminded pt that he also took Klonopin 2 mg and Clonidine 0.1 mg at the same time as the Effexor so it may just have been the combination of the meds. Education provided on potential side effects of new antidepressant and likely lou that they would wear off after a couple of weeks. Pt requested that we get housekeeping up here to clean the bathroom so he could use it. Pt has been using the bathroom in the [facility] as he did not wish to use the same bathroom his roommate with HIV had been using (roommate told him that he had HIV.) Advised pt not to strain to try to have a bowel movement. Called housekeeping who came up to clean his bathroom and other side of the room as his roommate was discharged today. At 1630, pt came to the room where the nurses chart. In front of 3 other nurses he stated that he thought he should take his Otto now. Pt described intermittent stabbing hernia area pain as well as pain radiating down his right groin area. He also stated that he was now experiencing burning during urination. He then became very accusatory and began berating this RN in front of the other nurses angrily stating things like, "you looked at my hernia, it has an infection and you missed it!" (This was only the 2nd day that this RN has ever worked with the pt. He had been here since 10/25/18, several other staff members including other doctors had seen his hernia and not been concerned with cellulitis. This nurse had apologized to the pt earlier in the shift for not recognizing that it perhaps may have been a skin infection and conveyed relief that the hospitalist had assessed him today and began treatment. Pt at that time had been friendly and thanked this RN for good care and professionalism, had stated that he was quite pleased I was his nurse.) Pt then stated that he didn't even want any Otto now, he wanted a new nurse. Pt then went to the charge nurse and demanded a new nurse. He made statements to the effect that he would have to report this RN to [facility]. Charge nurse had conversation with the patient about how the nurses are a team and there was no real indication to change his nurse at this time. Pt then asked if someone else could bring him his last dose of gastrograffin, hemodialysis charge nurse declined. This RN brought him another dose of gastrograffin. In the meantime he had asked another RN on the floor for his Otto, last dose of Otto was given. CT called for to send the patient down to radiology. CT scan was done. When pt returned to the floor, he approached the RN to apologize stating that he just didn't feel good and had a lot of things on his mind. Pt c/o nausea. Dr Galloway was present on the unit and ordered Zofran 4 mg ODT Q 6H prn nausea. S/I, H/I: Pt denies A/VH: Pt denies Sleep: Pt reported the best sleep since he has been here last night. Noc shift recorded that pt slept 3.5 hours. ADL's: Independent Group attendance: No Were meds taken: yes Any med S/E: pt reported that Effexor makes him sleepy. Mental Status Exam Appearance: tall bearded man, disheveled, oily hair, poor hygiene, adequately dressed wearing street clothes Eye contact: Good Behavior: Makes frequent requests from staff, frequent requests for prn meds, impatient with requests not being met instantly, makes accusatory statements, staff splits, threatens to report staff to authorities Speech: Clear, audible Mood:anxious, depressed Affect: anxious, worried Thought process: perseverative Thought Content: Perseverates over hernia, abdominal pain, and bowel movements, accusatory Cognition: A/O X 4 Insight: Fair Judgment: Fair Interventions PRN's used: Otto 10/325 mg X 2, Atarax 100 mg, Tylenol 650 mg, eye drops Therapeutic interventions: 1:1 assessment active listening, therapeutic conversation, reassurance, positive reinforcement, limit setting, reality orientation, medication administration/education/monitoring, procedure education, Q15 minute safety checks. Restraints/seclusion/emergency medication: none Justification of Continued Inpatient Treatment: interrupt current crisis, maintain safety of patient. Continued therapeutic support and medication adjustment/management needed to provide stabilization, prevent decompensation, decreasing risk to patient and readmittance.
[2018-11-09] MEDS ORDERED: ondansetron 4mg rapidly disintigrating tab PO PRN (18:20)
[2018-11-09] MEDS: magnesium hydroxide 30ml (MOM) UD suspension PO PRN (19:45)
[2018-11-09] MEDS: gabapentin 400mg capsule PO SCH (20:37)
[2018-11-09] MEDS: PALIPERIDONE 3 MG TAB.ER.24 PO SCH (20:38)
[2018-11-09] MEDS: Melatonin 3mg tablet PO PRN (20:41)
[2018-11-09 20:56] VITALS: BP 138/88
--- NOTE | 2018-11-09 22:14 | NUR ---
Nursing Progress Note: Received report via SBAR from KATARINA Edmondson Legal hold: N/A Client is voluntary Why are they here:The patient is a 42 year old male who presents to the ED with complaints of depression. The patient states that he has been out of his medications for two weeks and reports that he is "suffering". The patient does not have a plan currently to kill himself. He states that he "does not feel safe". The patient notes that he has experienced decrease energy and he does not want to do things that he previously enjoyed. The patient states that he "doesn't have any hope". The patient did not want to wait for his next psychiatric appointment so he called the office and they told him to present to the ED. Assessment What happened today: Pt rated his depression today at a 6/10 and his anxiety at a 7/10, he denies SI/HI/AH/VH. Pt requested a Prn Tylenol and MOM for constipation. Pt states he feels like he has to have a bowel movement but no results. Pt 's mother called and c/o of the care her son receives. Pt stated that his mother is over stepping her boundaries and he is happy with his care. He said e is going to call his dad and set up for him to go there if D/C . S/I, H/I: Pt denies A/VH: Pt denies Sleep: Pt reported the best sleep since he has been here last night. Noc shift recorded that pt slept 3.5 hours. ADL's: Independent Group attendance: No Were meds taken: yes Any med S/E: pt reported that Effexor makes him sleepy. Mental Status Exam Appearance: tall bearded man, disheveled, oily hair, poor hygiene, adequately dressed wearing street clothes Eye contact: Good Behavior: Makes frequent requests from staff, frequent requests for prn meds, impatient with requests not being met instantly, makes accusatory statements, staff splits, threatens to report staff to authorities Speech: Clear, audible Mood:anxious, depressed Affect: anxious, worried Thought process: perseverative Thought Content: Perseverates over hernia, abdominal pain, and bowel movements, accusatory Cognition: A/O X 4 Insight: Fair Judgment: Fair Interventions PRN's used: Krebs 10/325 mg X 2, Atarax 100 mg, Tylenol 650 mg, eye drops Therapeutic interventions: 1:1 assessment active listening, therapeutic conversation, reassurance, positive reinforcement, limit setting, reality orientation, medication administration/education/monitoring, procedure education, Q15 minute safety checks. Restraints/seclusion/emergency medication: none Justification of Continued Inpatient Treatment: interrupt current crisis, maintain safety of patient. Continued therapeutic support and medication adjustment/management needed to provide stabilization, prevent decompensation, decreasing risk to patient and readmittance.
[2018-11-10] MEDS: HYDROcodone/acetaminophen 10/325mg tab PO PRN ×4 (00:09→21:00)
[2018-11-10] MEDS: cephalexin 500mg capsule PO SCH ×4 (03:07→20:58)
[2018-11-10] MEDS: clonazePAM 1mg tablet PO SCH ×2 (07:47→19:13)
[2018-11-10] MEDS: docusate sod 100mg capsule PO SCH ×2 (07:47→20:58)
[2018-11-10] MEDS: cloNIDine 0.1 mg tablet PO SCH ×3 (07:47→20:58)
[2018-11-10] MEDS: venlafaxine XR 75mg capsule (Q24H) PO SCH (07:47)
[2018-11-10] MEDS: nicotine 21mg patch - 24 hr TD SCH (07:48)
[2018-11-10 08:00] VITALS: BP 115/75
[2018-11-10] MEDS: clotrimazole topical cream 15gm tube TP SCH ×2 (08:00→20:58)
[2018-11-10] MEDS: acetaminophen 325mg tablet PO PRN (11:40)
[2018-11-10] MEDS: hydrOXYzine 25 MG tablet PO PRN (11:40)
[2018-11-10] MEDS: magnesium hydroxide 30ml (MOM) UD suspension PO PRN (12:42)
--- NOTE | 2018-11-10 15:26 | NUR ---
Nursing Progress Note: Received report via SBAR from KATARINA Ellsworth Legal hold: N/A Client is voluntary Why are they here:The patient is a 42 year old male who presents to the ED with complaints of depression. The patient states that he has been out of his medications for two weeks and reports that he is "suffering". The patient does not have a plan currently to kill himself. He states that he "does not feel safe". The patient notes that he has experienced decrease energy and he does not want to do things that he previously enjoyed. The patient states that he "doesn't have any hope". The patient did not want to wait for his next psychiatric appointment so he called the office and they told him to present to the ED. Assessment What happened today: The patient was up sitting in hallway at change of shift. He requested his medications including Knox for pain which was administered. he then ate breakfast with his peers where he stated he felt "dizzy" but was able to eat his entire tray of food and then felt "better." he c/o constipation. Was given MOM and did have several BM's today. He attended both groups but was "triggered" by others and stated he could not remain in the group for the entire time. He states he is depressed but not suicidal and is looking forward to living with his step father. S/I, H/I: Pt denies A/VH: Pt denies Sleep: Napped ADL's: Independent Group attendance: Yes Were meds taken: yes Any med S/E: None Mental Status Exam Appearance: tall bearded man, disheveled, oily hair, poor hygiene, adequately dressed wearing street clothes Eye contact: Good Behavior: Polite and apologetic for past outbursts Speech: Clear, audible Mood:anxious, depressed Affect: anxious, worried Thought process: perseverating on constipation Thought Content: Perseverates over hernia, abdominal pain, and bowel movements Cognition: A/O X 4 Insight: Poor Judgment: Fair Interventions PRN's used: Knox 10/325 mg X 2, Atarax 100 mg, Tylenol 650 mg, MOM Therapeutic interventions: 1:1 assessment active listening, therapeutic conversation, reassurance, positive reinforcement, limit setting, reality orientation, medication administration/education/monitoring, procedure education, Q15 minute safety checks. Restraints/seclusion/emergency medication: none Justification of Continued Inpatient Treatment: interrupt current crisis, maintain safety of patient. Continued therapeutic support and medication adjustment/management needed to provide stabilization, prevent decompensation, decreasing risk to patient and readmittance.
[2018-11-10] MEDS ORDERED: NICO-687 TD (18:03)
[2018-11-10] MEDS ORDERED: CLON-286 PO (18:03)
[2018-11-10] MEDS ORDERED: CLON0.1T20 PO (18:03)
[2018-11-10] MEDS ORDERED: ALBU18HF2 INH (18:03)
[2018-11-10] MEDS ORDERED: LIDO700A47 TP (18:03)
[2018-11-10] MEDS ORDERED: VENL150T3 PO (18:03)
[2018-11-10] MEDS ORDERED: COL100C PO (18:03)
[2018-11-10] MEDS ORDERED: PALI6TAB6 PO (18:03)
[2018-11-10] MEDS ORDERED: GABA-534 PO (18:03)
[2018-11-10 20:00] VITALS: BP 133/81
[2018-11-10] MEDS ORDERED: lactobacillus rhamnosus 10,000 MMU CELLS/CAPSULE PO SCH (20:00)
[2018-11-10] MEDS: PALIPERIDONE 3 MG TAB.ER.24 PO SCH (20:59)
[2018-11-10] MEDS: gabapentin 400mg capsule PO SCH (20:59)
[2018-11-10] MEDS: Melatonin 3mg tablet PO PRN (21:11)
[2018-11-11] MEDS: cephalexin 500mg capsule PO SCH (02:00)
--- NOTE | 2018-11-11 03:20 | NUR ---
Nursing Progress Note: Legal hold: Voluntary Client on voluntary status for DTS Report received from nurse with use of SBAR: KATARINA Edmondson Why are they here: The patient is a 42 year old male who self presented to the ED with complaints of depression. Pt. states that he has been out of his medications for two weeks and reports that he is "suffering". The patient does not have a plan currently to kill himself. He states that he "does not feel safe," and is having some paranoid thoughts. The patient notes that he has experienced decrease energy, does not want to do things that he previously enjoyed, and "doesn't have any hope". He did not want to wait for his next psychiatric appointment so he called the office and they told him to present to the ED. He has also been experiencing insomnia X 3-4 days prior to coming to the ER, has a hx of two previous suicide attempts by hanging, and a history of substance abuse. Assessment What has happened this shift: Pt. sitting quietly in his room at the beginning of the shift, he presents as pleasant, cooperative, apologetic to staff for previous behavior, and with a significantly decreased focus on somatic s/s. Pt. appropriately greets this flex o writer operator and excitedly reports that his hernia surgery will take place tomorrow, he also endorses understanding that he will be NPO at midnight. Later, pt. requests anxiolytic per feeling somewhat anxious regarding scheduled surgery, scheduled Clonazepam administered with effectiveness. 1:1 completed at bedside after pt. has spoken on the phone with his parents. When questioned by this flex o writer operator regarding his mood, pt. states, "I am feeling so much better!" He continues to deny S/I, and reports that the XR Effexor is really helping his depression. Pt. admits to some ongoing anxiety, however endorses a plan to continue working with an MD in order to taper his Clonazepam to 1mg per day, PRN. He requests PRN [place] X1 for chronic back/hernia pain, administered with effectiveness. Pt. inventory completed in preparation for discharge tomorrow for scheduled surgery by Sage Jesus. Pt. continues on ABT for cellulitis present at abdominal hernia site, pictures of area obtained and place in pt's chart. Pt. requests headphones to listen to music at HS in order to help him relax, with effectiveness. S/I, H/I: Denies A/VH: Denies Sleep: Pt. continues to repot some difficulty with insomnia, PRN Melatonin administered at HS with effectiveness. ADL's: Independent Group attendance: Pt. attends groups, identifies coping mechanisms as reading scripture, visits from the chaplan, and positive thinking Were meds taken: Yes (however held 0200 dose of Keflex per pt. NPO at midnight) Any med S/E: None Mental Status Exam Appearance: Dressed appropriately, neat Eye contact: Good Behavior: Cooperative and somewhat anxious Speech: Soft, WNL Mood: Pleasant Affect: Animated Thought process: WNL Thought Content: Some phobias r/t scheduled surgery for tomorrow Cognition: A&O X4 Insight: Fair Judgment: Fair to good Interventions PRN's used: [place] and Melatonin Therapeutic interventions: Maintained a safe and supportive environment, ensured contract for safety, provided medication education, provided active listening, monitored behaviors and need for intervention, and maintained Q 15 min safety checks. Restraints/seclusion/emergency medication: N/A Justification of Continued Inpatient Treatment: Pt. has hernia surgery scheduled for tomorrow AM, and afterwards will discharge home with parents. He continues to require a safe and supportive environment while awaiting surgery.
--- NOTE | 2018-11-11 06:45 | NUR ---
Discharge Note: Pt. being discharged from [facility] to surgical at 0700 for umbilical hernia repair. Belongings inventoried with pt. by kelsi Jesus and will be transferred with pt. Report given to KATARINA Sr. Pt. has been NPO since midnight. He plans to D/C home to [place] following surgery. Addendum: 11/11/18 at 0744 by Lluvia Mcmullen RN Per surgical nurse: pt needs to have chest x-ray, EKG, labs (CBC &CMP), IV start, and pre-operative chest list done prior to scheduled surgery. Endorsed to AM discharge specialist.
--- NOTE | 2018-11-11 08:10 | NUR ---
Note: Started 20 gauge PIV to pts R hand after 3rd attempt. Unable to get larger IV higher on either arms. Pt does not have new account on surgical. Surgical is attempting to get a hospitalist to admit. Awaiting phone call from Surgical.
[2018-11-11] MEDS ORDERED: normal saline 1000ml 1,000 ML IV SCH (08:13)
[2018-11-11] MEDS ORDERED: HYDROcodone/acetaminophen 5mg/325mg tablet PO PRN (08:15)
[2018-11-11] MEDS ORDERED: magnesium 4gm in 100ml NS 100 ML IV PRN (08:15)
[2018-11-11] MEDS ORDERED: magnesium 2GM in 50ml NS 50 ML IV PRN (08:15)
[2018-11-11] MEDS ORDERED: HYDROcodone/acetaminophen 10/325mg tab PO PRN (08:15)
[2018-11-11] MEDS ORDERED: potassium CL 10mEq/100ml bag 100 ML IV PRN ×2 (08:15)
[2018-11-11] MEDS ORDERED: potassium Cl 20 mEq SR tablet PO PRN ×2 (08:15)
[2018-11-11] MEDS ORDERED: morphine 2 MG/ML inj. syringe IV PRN ×2 (08:15)
[2018-11-11] MEDS ORDERED: magnesium Cl slow-release 64mg tablet PO PRN (08:15)
[2018-11-11] MEDS ORDERED: acetaminophen 325mg tablet PO PRN ×2 (08:15)
[2018-11-11] MEDS ORDERED: ondansetron/PF 4mg/2ml inj IV PRN (08:15)
[2018-11-11] MEDS ORDERED: ALBU8.5H8 INH (15:09)
[2018-11-11] MEDS ORDERED: CLON2TAB PO (15:09)
[2018-11-11] MEDS ORDERED: CLON0.1T PO (15:10)
[2018-11-11] MEDS ORDERED: DOCU-148 PO ×2 (15:11→15:12)
[2018-11-11] MEDS ORDERED: GABA400C PO (15:13)
[2018-11-11] MEDS ORDERED: IBUP-1985 PO (15:13)
[2018-11-11] MEDS ORDERED: NICO1PAT36 TOP (15:14)
[2018-11-11] MEDS ORDERED: PALI6TAB PO (15:15)
[2018-11-11] MEDS ORDERED: VENL75CA55 PO (15:16)
[2018-11-11] MEDS ORDERED: PALI3TAB PO (15:16)
[2018-11-11] MEDS ORDERED: heparin, porcine 5000 units/ml vial SQ SCH (20:00)
[2018-11-11] MEDS ORDERED: temazepam 15mg capsule PO PRN (21:00)
[2018-11-12] MEDS ORDERED: K and/or MAG REPLACEMENT MC SCH (08:00)
== END 2018-11-11 08:27 | disposition short-term general hospital (02) | DRG 751 ==
LOC: ADULT MH 20:37
PROVIDERS: ADMIT Psychiatry & Neurology Psychiatry; ATTEND Psychiatry & Neurology Psychiatry
PROC: 3E0234Z Introduction of Serum, Toxoid and Vaccine into Muscle, Percutaneous Approach (ICD-10-PCS; principal; 2018-10-26)
DX: F33.2 Major depressive disorder, recurrent severe without psychotic features (principal); F13.20 Sedative, hypnotic or anxiolytic dependence, uncomplicated; R45.851 Suicidal ideations; Z68.42 Body mass index [BMI] 45.0-49.9, adult; F43.10 Post-traumatic stress disorder, unspecified; G47.33 Obstructive sleep apnea (adult) (pediatric); K43.9 Ventral hernia without obstruction or gangrene; J44.9 Chronic obstructive pulmonary disease, unspecified; H04.129 Dry eye syndrome of unspecified lacrimal gland; L03.311 Cellulitis of abdominal wall; F17.200 Nicotine dependence, unspecified, uncomplicated; E66.9 Obesity, unspecified; F25.9 Schizoaffective disorder, unspecified; F10.11 Alcohol abuse, in remission; F15.21 Other stimulant dependence, in remission; F42.9 Obsessive-compulsive disorder, unspecified; I10 Essential (primary) hypertension; Z23 Encounter for immunization; Z88.8 Allergy status to other drugs, medicaments and biological substances; Z79.899 Other long term (current) drug therapy
CPT/HCPCS: 36415; 71045; 74176; 80061; 83036; 87081; 90732; 93005; 94640; 94760; Q9963; Z7610

== ENCOUNTER 2018-11-11 08:40 | Inpatient (IN) | payer MEDICAID ==
[2018-11-11] VITALS (19 sets, daily range): BP systolic 91–138; BP diastolic 46–95
[~2018-11-11] VITALS: Ht 185.4 cm; Wt 163.3 kg
[~2018-11-11 08:40] MED LIST changes: +ALBU18HF2 INH; +CLON-286 PO; -CLON-529 PO; +CLON0.1T20 PO; +COL100C PO; +GABA-534 PO; -HYDR-4353 PO; +IBUP-1985 PO; +LIDO700A47 TP; -LORA1TAB PO; -LURA40TA3 PO; +NICO-687 TD; -OLAN5TAB5 PO; +PALI6TAB6 PO; -SERT50TA PO; +VENL150T3 PO
[2018-11-11] MEDS ORDERED: clindamycin phosphate 150mg/ml inj. ONE (08:48)
[2018-11-11] MEDS ORDERED: gentamicin 40 MG/1 ML inj ONE (08:48)
[2018-11-11 09:52] LABS: BASOPHILS % (AUTO) 0.5 % (0-1); EOSINOPHILS # (AUTO) 0.2 X10'3 (0-0.9); EOSINOPHILS % (AUTO) 3.2 % (0-6); LYMPHOCYTES # (AUTO) 1.7 X10'3 (1.1-4.8); MEAN CORPUSCULAR HEMOGLOBIN 29.8 PG (27.0-31.0); MEAN CORPUSCULAR HGB CONC 33.6 g/dL (33.0-36.5); MEAN CORPUSCULAR VOLUME 88.8 FL (78-98); MEAN PLATELET VOLUME 8.1 FL (7.4-10.4); MONOCYTES # (AUTO) 0.6 X10'3 (0-0.9); MONOCYTES % (AUTO) 8.1 % (2-12); NEUTROPHILS # (AUTO) 4.4 X10'3 (1.8-7.7); NEUTROPHILS % (AUTO) 63.2 % (42-75); PRE OP HEMATOCRIT 38.9 % (42.0-52.0); PRE OP HEMOGLOBIN 13.1 g/dL (14.0-17.9); PRE OP PLATELET COUNT 206 X10'3 (140-440); RED BLOOD COUNT 4.38 X10'6 (4.70-6.10); RED CELL DISTRIBUTION WIDTH 14.4 % (11.5-14.5)
[2018-11-11 10:03] LABS: PARTIAL THROMBOPLASTIN TIME 29 SECONDS (22-32)
[2018-11-11] MEDS ORDERED: midazolam 2 mg/2 ml injection ONE (10:04)
[2018-11-11] MEDS ORDERED: fentaNYL /PF 50mcg/ml 5ml ampule ONE (10:05)
[2018-11-11 10:08] LABS: ALANINE AMINOTRANSFERASE 50 U/L (12-78); ALBUMIN 3.8 G/DL (3.4-5.0); ALKALINE PHOSPHATASE 79 IU/L (46-116); ANION GAP 9 (8-16); ASPARTATE AMINO TRANSFERASE 22 U/L (10-37); BILIRUBIN,TOTAL 0.4 MG/DL (0.1-1.0); BLOOD UREA NITROGEN 6 MG/DL (7-18); BUN/CREATININE RATIO 6.7 (5.4-32.0); CALCIUM 8.2 MG/DL (8.5-10.1); CHLORIDE 105 MMOL/L (99-107); CREATININE 0.89 MG/DL (0.60-1.10); GLUCOSE 102 MG/DL (70-104); POTASSIUM 4.1 MMOL/L (3.5-5.1); SODIUM 144 MMOL/L (135-145); TOTAL CARBON DIOXIDE 30.5 MMOL/L (24-32); TOTAL PROTEIN 7.6 G/DL (6.4-8.2); eGFR > 90 ML/MIN
[2018-11-11] MEDS ORDERED: BUPIVAcaine/PF 2.5mg/ml (0.25%) 10ml vial ONE (10:22)
[2018-11-11] MEDS ORDERED: BUPIVACAINE liposomal/PF 13.3 MG/ML vial IM ONE (10:22)
[2018-11-11] MEDS ORDERED: sevoflurane 250ml liquid IH ONE (10:52)
[2018-11-11] MEDS ORDERED: rocuronium 10mg/ml inj IV ONE ×2 (10:52→11:22)
[2018-11-11] MEDS ORDERED: ketamine 50mg/5ml syringe ONE (11:12)
[2018-11-11] MEDS ORDERED: propofol inj 20 ML IV ONE (11:22)
[2018-11-11] MEDS ORDERED: LIDOcaine 2% (20mg/ml) 5ml vial ONE (11:22)
[2018-11-11] MEDS ORDERED: neostigmine methylsulfate 1 MG/ML 10ml vial ONE (11:22)
[2018-11-11] MEDS ORDERED: glycopyrrolate 0.2mg/ml inj ONE (11:22)
[2018-11-11] MEDS ORDERED: ondansetron/PF 4mg/2ml inj ONE (11:22)
[2018-11-11] MEDS ORDERED: ringers solution, lacted 1,000 ML IV SCH (11:29)
[2018-11-11] MEDS ORDERED: morphine 4 MG/ML inj SYRINge IV PRN ×2 (11:30)
[2018-11-11] MEDS ORDERED: meperidine/PF 25mg/ml syringe IV PRN ×2 (11:30)
[2018-11-11] MEDS ORDERED: proCHLORperazine 10 MG/2 ml inj IV PRN (11:30)
[2018-11-11] MEDS ORDERED: ondansetron/PF 4mg/2ml inj IV PRN (11:30)
--- NOTE | 2018-11-11 12:27 | NUR ---
Received from OR via SURGICAL BED, accompanied by Anesthesiologist ANGELO and report given by Anesthesiolgist. PATIENT WITH 20G PIV IN RIGHT UE RUNNING LR AT 100. DENIES PAIN AT THIS TIME. REMOVED LMA SHORTLY AFTER ARRIVAL. BABAK TO ABDOMEN THAT IS CDI. ISLAND DRESSING PRESENT AND IS CDI. SCDS DONNED. HANCOCK CATHETER PRESENT AND WITH CLEAR YELLOW URINE PRESENT. Addendum: 11/11/18 at 1243 by Bhaskar Fleming RN, RN Amended: Links added.
[2018-11-11] MEDS ORDERED: sugammadex 200mg/2ml injection IV ONE (12:28)
[2018-11-11] MEDS ORDERED: HYDROmorphone 1 mg/ml syringe IV PRN (12:30)
[2018-11-11] MEDS ORDERED: HYDROcodone/acetaminophen 10/325mg tab PO PRN (12:30)
[2018-11-11] MEDS: meperidine/PF 25mg/ml syringe IV PRN ×2 (12:46→12:52)
[2018-11-11] MEDS ORDERED: ipratropium/albuterol 3ml nebule NEB PRN (12:50)
[2018-11-11] MEDS ORDERED: HYDROmorphone inj. 0.5 MG/0.5 ML DISP.SYRIN IV PRN ×2 (13:00)
[2018-11-11] MEDS ORDERED: HYDROmorphone 1 mg/ml syringe ONE (13:13)
[2018-11-11] MEDS ORDERED: acetaminophen 1,000mg/100ml IV 100 ML IV ONE (13:20)
[2018-11-11] MEDS ORDERED: naloxone 0.4 mg/ml inj IV PRN (13:20)
[2018-11-11] MEDS ORDERED: CADD PCA waste documentation MC PRN (13:20)
[2018-11-11] MEDS: HYDROmorphone/NS 1 mg/ml CADD 50 ML IV SCH ×8 (13:36→23:00)
--- NOTE | 2018-11-11 13:37 | NUR ---
ALL CRITERIA FOR TRANSFER TO THE FLOOR HAS BEEN ACHIEVED. VSS. BED LOW, CALL LIGHT AND VS. SET IN PLACE. RN PRESENT TO ACCEPT CARE. PATIENT RESTING COMFORTABLY IN BED. BELONGINGS SENT WITH PATIENT. DRESSINGS CDI. RN PRESENT TO ACCEPT CARE AND PUT PATIENT ON VS MACHINE. Addendum: 11/11/18 at 1350 by Bhaskar Fleming RN, RN Amended: Links added.
[2018-11-11] MEDS ORDERED: CLON2TAB PO (15:09)
[2018-11-11] MEDS ORDERED: ALBU8.5H8 INH (15:09)
[2018-11-11] MEDS ORDERED: CLON0.1T PO (15:10)
[2018-11-11] MEDS ORDERED: DOCU-148 PO ×2 (15:11→15:12)
[2018-11-11] MEDS ORDERED: GABA400C PO (15:13)
[2018-11-11] MEDS ORDERED: IBUP-1985 PO (15:13)
[2018-11-11] MEDS ORDERED: NICO1PAT36 TOP (15:14)
[2018-11-11] MEDS ORDERED: PALI6TAB PO (15:15)
[2018-11-11] MEDS ORDERED: VENL75CA55 PO (15:16)
[2018-11-11] MEDS ORDERED: PALI3TAB PO (15:16)
[2018-11-11] MEDS ORDERED: ceFAZolin 1GM/D5W- ADD-VANTAGE 50 ML IV SCH (16:00)
[2018-11-11] MEDS: ketorolac tromethamine 15mg/ml inj. IV SCH ×2 (16:02→23:54)
[2018-11-11] MEDS: ceFAZolin inj. 1,000 MG in dextrose 5%-water 50ml 50 ML IV SCH ×2 (16:30→23:57)
--- NOTE | 2018-11-11 19:12 | NUR ---
Patient in room [facility]. I have received report from Orin Gordon and had the opportunity to ask questions and assume patient care.
[2018-11-11] MEDS: normal saline 1000ml 1,000 ML IV SCH (20:37)
[2018-11-12] VITALS: BP 118/68
[2018-11-12] MEDS: HYDROmorphone/NS 1 mg/ml CADD 50 ML IV SCH ×10 (01:00→23:00)
[2018-11-12] MEDS: LORazepam 1 MG tablet PO PRN ×4 (01:40→19:40)
[2018-11-12 04:00] VITALS: BP 117/74
[2018-11-12 05:32] LABS: ALBUMIN 3.3 G/DL (3.4-5.0); ANION GAP 9 (8-16); BLOOD UREA NITROGEN 6 MG/DL (7-18); BUN/CREATININE RATIO 6.3 (5.4-32.0); CALCIUM 7.3 MG/DL (8.5-10.1); CHLORIDE 106 MMOL/L (99-107); CREATININE 0.95 MG/DL (0.60-1.10); GLUCOSE 115 MG/DL (70-104); SODIUM 141 MMOL/L (135-145); TOTAL CARBON DIOXIDE 25.6 MMOL/L (24-32); eGFR 86 ML/MIN
--- NOTE | 2018-11-12 06:34 | NUR ---
Problems reprioritized. Patient report given, questions answered & plan of care reviewed with KATARINA Ramirez.
[2018-11-12 07:00] VITALS: BP 131/79
--- NOTE | 2018-11-12 07:04 | NUR ---
Patient in room [facility]. I have received report from Omer BRAY and had the opportunity to ask questions and assume patient care.
--- NOTE | 2018-11-12 07:04 | NUR ---
Patient in room [facility]. I have received report from KATARINA Wang and had the opportunity to ask questions and assume patient care.
[2018-11-12] MEDS: pantoprazole 40mg Tablet.DR PO SCH (07:24)
[2018-11-12] MEDS: ketorolac tromethamine 15mg/ml inj. IV SCH ×2 (07:25→15:52)
[2018-11-12] MEDS: ceFAZolin inj. 1,000 MG in dextrose 5%-water 50ml 50 ML IV SCH (07:25)
--- NOTE | 2018-11-12 08:43 | NUR ---
THE CADD SETTING WAS CHECKED AT 0700. PHARMACY WAS NOTIFIED 37.5 MG LEFT 52/146 ATTEMPTS 11.10MG USED Addendum: 11/12/18 at 1115 by Kirt JOHANSENNU 37.5ML INSTEAD OF MG PAIN LEVEL WAS A 10/19
--- NOTE | 2018-11-12 09:41 | NUR ---
CHECKED CAD PUMP AT 0900 WITH THE FOLLOWING SETTINGS INDICATED. HE STATES PAIN IS A 10/19 36.7MG LEFT 56/154 ATTEMPTS 11.96MG USED Addendum: 11/12/18 at 1114 by Kirt BONILLA 36.7ML INSTEAD OF 36.7MG
[2018-11-12] MEDS ORDERED: FLU VACC QS2019-20 36MOS UP/PF 60 MCG/0.5 ML SYRINGE IMVAC ONE (10:00)
[2018-11-12] MEDS ORDERED: docusate sod 100mg capsule PO PRN (10:25)
[2018-11-12] MEDS ORDERED: albuterol 2.5 MG/3 ML nebule NEB PRN (10:30)
[2018-11-12 11:00] VITALS: BP 135/83
[2018-11-12] MEDS: clonazePAM 1mg tablet PO PRN (13:11)
[2018-11-12] MEDS: simethicone 80mg chew tab PO PRN ×2 (13:11→20:52)
[2018-11-12] MEDS: cloNIDine 0.1 mg tablet PO SCH ×2 (13:11→20:42)
[2018-11-12 18:00] VITALS: BP 140/90
[2018-11-12] MEDS ORDERED: CADD PCA waste documentation MC SCH (18:35)
--- NOTE | 2018-11-12 18:46 | NUR ---
Problems reprioritized. Patient report given to , questions answered & plan of care reviewed with Alexandra Suarez
--- NOTE | 2018-11-12 18:49 | NUR ---
0700 and 0900 cadd settings and cadd reassessment did not appear for documentation at those times, however sn ann and this nurse did assess cadd settings and cadd reassessments at 0700 and 0900.
--- NOTE | 2018-11-12 18:49 | NUR ---
Student documentation: I have reviewed and agree with all interventions, assessments performed and documented by sn ann. Student Medication Administration: For this medication-pass time frame, all medication were reviewed, dispensed, administered and documented per hospital policy by sn ann.
[2018-11-12] MEDS: gabapentin 400mg capsule PO SCH (20:42)
[2018-11-12] MEDS: PALIPERIDONE 3 MG TAB.ER.24 PO SCH (20:42)
[2018-11-13] VITALS: BP 138/78
[2018-11-13] MEDS: ketorolac tromethamine 15mg/ml inj. IV SCH ×4 (00:46→23:52)
[2018-11-13] MEDS: HYDROmorphone/NS 1 mg/ml CADD 50 ML IV SCH ×12 (00:48→23:00)
--- NOTE | 2018-11-13 06:21 | NUR ---
Problems reprioritized. Patient report given, questions answered & plan of care reviewed with KATARINA Ramirez.
--- NOTE | 2018-11-13 06:36 | NUR ---
Patient in room [facility]. I have received report from KATARINA ULLOA and had the opportunity to ask questions and assume patient care.
[2018-11-13] MEDS: cloNIDine 0.1 mg tablet PO SCH ×3 (07:23→21:08)
[2018-11-13] MEDS: pantoprazole 40mg Tablet.DR PO SCH (07:23)
[2018-11-13] MEDS: venlafaxine XR 75mg capsule (Q24H) PO SCH (07:23)
[2018-11-13] MEDS: enoxaparin 40mg/0.4ml syringe SUBCUT SCH (07:33)
[2018-11-13] MEDS: methylnaltrexone br 12mg/0.6ml inj***SubQ only SQ SCH (07:36)
[2018-11-13] MEDS: nicotine 21mg patch - 24 hr TD SCH (07:39)
[2018-11-13] MEDS: CefTRIAXone 2gm/D5W 50ml 50 ML IV SCH (07:45)
[2018-11-13 07:47] LABS: ALBUMIN 3.1 G/DL (3.4-5.0); ANION GAP 11 (8-16); BLOOD UREA NITROGEN 6 MG/DL (7-18); BUN/CREATININE RATIO 6.7 (5.4-32.0); CALCIUM 7.8 MG/DL (8.5-10.1); CHLORIDE 104 MMOL/L (99-107); GLUCOSE 96 MG/DL (70-104); POTASSIUM 3.6 MMOL/L (3.5-5.1); SODIUM 142 MMOL/L (135-145); TOTAL CARBON DIOXIDE 26.8 MMOL/L (24-32); eGFR > 90 ML/MIN
[2018-11-13 08:01] VITALS: BP 114/71
[2018-11-13] MEDS: LORazepam 1 MG tablet PO PRN ×2 (10:20→21:34)
[2018-11-13 11:42] VITALS: BP 131/80
[2018-11-13] MEDS: clonazePAM 1mg tablet PO PRN (12:57)
[2018-11-13] MEDS ORDERED: mag hydrox/Alum hydrox/simeth 30ml oral suspension PO ONE (15:20)
--- NOTE | 2018-11-13 16:14 | NUR ---
Patient in room [facility]. I have received report from Alexandra BRAY and had the opportunity to ask questions and assume patient care.
[2018-11-13 18:00] VITALS: BP 122/75
--- NOTE | 2018-11-13 18:51 | NUR ---
Problems reprioritized. Patient report given, questions answered & plan of care reviewed with nomi myers.
--- NOTE | 2018-11-13 18:56 | NUR ---
Problems reprioritized. Patient report given, questions answered & plan of care reviewed with Alexandra BRAY.
--- NOTE | 2018-11-13 19:25 | NUR ---
Student documentation: I have reviewed and agree with all interventions, assessments performed and documented by SN ALEIDA. Student Medication Administration: For this medication-pass time frame, all medication were reviewed, dispensed, administered and documented per hospital policy by SN ALEIDA.
[2018-11-13] MEDS: normal saline 1000ml 1,000 ML IV SCH (19:42)
--- NOTE | 2018-11-13 20:45 | NUR ---
Received report from Alexandra Saleh RN. Pt bed with no distress. Pt requesting Klonopine. Boarder gauze dressing on abdominal midline. CDI. Hypoactive bowel sounds. No N/V. Denies shortness of breath. Clear lung sounds. SCDs on. Void independently without difficultly. Addendum: 11/14/18 at 0436 by Ayanna Marrufo RN Amended: Links added.
[2018-11-13] MEDS: gabapentin 400mg capsule PO SCH (21:08)
[2018-11-13] MEDS: PALIPERIDONE 3 MG TAB.ER.24 PO SCH (21:08)
--- NOTE | 2018-11-13 21:13 | NUR ---
Problems reprioritized. Patient report given, questions answered & plan of care reviewed with Kevin Lo.
[2018-11-14 00:15] VITALS: BP 114/79
[2018-11-14] MEDS: HYDROmorphone/NS 1 mg/ml CADD 50 ML IV SCH ×4 (01:00→07:00)
[2018-11-14 06:12] LABS: BASOPHILS % (AUTO) 0.3 % (0-1); EOSINOPHILS # (AUTO) 0.4 X10'3 (0-0.9); EOSINOPHILS % (AUTO) 4.6 % (0-6); HEMATOCRIT 32.5 % (42.0-52.0); HEMOGLOBIN 10.9 g/dl (14.0-17.9); LYMPHOCYTES # (AUTO) 1.2 X10'3 (1.1-4.8); LYMPHOCYTES % (AUTO) 14.8 % (21-51); MEAN CORPUSCULAR HGB CONC 33.7 g/dL (33.0-36.5); MONOCYTES # (AUTO) 0.7 X10'3 (0-0.9); MONOCYTES % (AUTO) 8.6 % (2-12); NEUTROPHILS % (AUTO) 71.7 % (42-75); PLATELET COUNT 215 X10'3 (140-440); RED BLOOD COUNT 3.65 X10'6 (4.70-6.10); RED CELL DISTRIBUTION WIDTH 14.4 % (11.5-14.5); WHITE BLOOD COUNT 8.4 X10'3 (4.5-11.0)
--- NOTE | 2018-11-14 06:34 | NUR ---
Patient in room [facility]. I have received report from Bettie BRAY and Ayanna BRAY "O" and had the opportunity to ask questions and assume patient care.
--- NOTE | 2018-11-14 06:35 | NUR ---
Problems reprioritized. Patient report given, questions answered & plan of care reviewed with KATARINA Ruiz.
[2018-11-14] MEDS: CefTRIAXone 2gm/D5W 50ml 50 ML IV SCH (07:33)
[2018-11-14] MEDS: nicotine 21mg patch - 24 hr TD SCH (07:35)
[2018-11-14] MEDS: venlafaxine XR 75mg capsule (Q24H) PO SCH ×2 (07:35→08:00)
[2018-11-14] MEDS: pantoprazole 40mg Tablet.DR PO SCH (07:36)
[2018-11-14] MEDS: cloNIDine 0.1 mg tablet PO SCH ×3 (07:36→20:58)
[2018-11-14] MEDS: ketorolac tromethamine 15mg/ml inj. IV SCH (07:36)
[2018-11-14] MEDS: enoxaparin 40mg/0.4ml syringe SUBCUT SCH (07:37)
[2018-11-14] MEDS: simethicone 80mg chew tab PO PRN (07:57)
[2018-11-14] MEDS ORDERED: oxyCODONE/APAP 10/325mg tablet PO PRN (08:05)
[2018-11-14] MEDS: lactobacillus rhamnosus 10,000 MMU CELLS/CAPSULE PO SCH ×2 (08:17→20:17)
[2018-11-14 08:51] LABS: ALBUMIN 2.9 G/DL (3.4-5.0); ANION GAP 9 (8-16); BLOOD UREA NITROGEN 5 MG/DL (7-18); BUN/CREATININE RATIO 5.3 (5.4-32.0); CALCIUM 8.2 MG/DL (8.5-10.1); CHLORIDE 103 MMOL/L (99-107); CREATININE 0.94 MG/DL (0.60-1.10); GLUCOSE 113 MG/DL (70-104); POTASSIUM 3.9 MMOL/L (3.5-5.1); SODIUM 140 MMOL/L (135-145); TOTAL CARBON DIOXIDE 28.1 MMOL/L (24-32); eGFR 87 ML/MIN
[2018-11-14 09:22] VITALS: BP 135/78
[2018-11-14] MEDS ORDERED: magnesium hydroxide 30ml (MOM) UD suspension PO ONE (09:30)
[2018-11-14] MEDS: LORazepam 1 MG tablet PO PRN ×2 (09:41→20:09)
[2018-11-14 11:00] VITALS: BP 121/75
[2018-11-14] MEDS: clonazePAM 1mg tablet PO PRN ×2 (13:04→20:09)
[2018-11-14] MEDS: oxyCODONE/APAP 10/325mg tablet PO PRN ×2 (14:43→20:19)
--- NOTE | 2018-11-14 18:20 | NUR ---
Problems reprioritized. Patient report given, questions answered & plan of care reviewed with Mai BRAY.
[2018-11-14 18:30] VITALS: BP 110/70
--- NOTE | 2018-11-14 18:30 | NUR ---
Patient in room [facility]. I have received report from Sara BRAY and had the opportunity to ask questions and assume patient care.
[2018-11-14 20:58] VITALS: BP 126/79
[2018-11-14] MEDS: PALIPERIDONE 3 MG TAB.ER.24 PO SCH (20:58)
[2018-11-14] MEDS: gabapentin 400mg capsule PO SCH (20:58)
[2018-11-15] VITALS: BP 121/80
[2018-11-15] MEDS: oxyCODONE/APAP 10/325mg tablet PO PRN ×3 (01:49→15:56)
[2018-11-15 05:11] LABS: BASOPHILS % (AUTO) 0.5 % (0-1); EOSINOPHILS # (AUTO) 0.4 X10'3 (0-0.9); HEMATOCRIT 34.9 % (42.0-52.0); HEMOGLOBIN 11.7 g/dl (14.0-17.9); LYMPHOCYTES # (AUTO) 1.4 X10'3 (1.1-4.8); LYMPHOCYTES % (AUTO) 17.3 % (21-51); MEAN CORPUSCULAR HEMOGLOBIN 29.8 PG (27.0-31.0); MEAN CORPUSCULAR HGB CONC 33.7 g/dL (33.0-36.5); MEAN CORPUSCULAR VOLUME 88.5 FL (78-98); MEAN PLATELET VOLUME 7.8 FL (7.4-10.4); MONOCYTES # (AUTO) 0.8 X10'3 (0-0.9); MONOCYTES % (AUTO) 9.4 % (2-12); NEUTROPHILS # (AUTO) 5.4 X10'3 (1.8-7.7); NEUTROPHILS % (AUTO) 67.8 % (42-75); PLATELET COUNT 266 X10'3 (140-440); RED BLOOD COUNT 3.94 X10'6 (4.70-6.10); RED CELL DISTRIBUTION WIDTH 14.3 % (11.5-14.5)
[2018-11-15 05:36] LABS: ALBUMIN 3.2 G/DL (3.4-5.0); ANION GAP 11 (8-16); CALCIUM 8.6 MG/DL (8.5-10.1); CHLORIDE 103 MMOL/L (99-107); CREATININE 0.94 MG/DL (0.60-1.10); GLUCOSE 111 MG/DL (70-104); SODIUM 143 MMOL/L (135-145); TOTAL CARBON DIOXIDE 29.5 MMOL/L (24-32); eGFR 87 ML/MIN
[2018-11-15 05:54] LABS: BLOOD UREA NITROGEN 4 MG/DL (7-18); BUN/CREATININE RATIO 4.3 (5.4-32.0)
--- NOTE | 2018-11-15 06:42 | NUR ---
Patient in room [facility]. I have received report from KATARINA Oneill and had the opportunity to ask questions and assume patient care.
--- NOTE | 2018-11-15 06:42 | NUR ---
Problems reprioritized. Patient report given, questions answered & plan of care reviewed with Jacque RN.
[2018-11-15] MEDS: CefTRIAXone 2gm/D5W 50ml 50 ML IV SCH (07:19)
[2018-11-15] MEDS: pantoprazole 40mg Tablet.DR PO SCH (07:20)
[2018-11-15] MEDS: nicotine 21mg patch - 24 hr TD SCH (07:20)
[2018-11-15] MEDS: cloNIDine 0.1 mg tablet PO SCH ×3 (07:20→20:35)
[2018-11-15] MEDS: lactobacillus rhamnosus 10,000 MMU CELLS/CAPSULE PO SCH ×2 (07:20→20:35)
[2018-11-15] MEDS: venlafaxine XR 75mg capsule (Q24H) PO SCH (07:20)
[2018-11-15] MEDS: enoxaparin 40mg/0.4ml syringe SUBCUT SCH (07:22)
[2018-11-15] MEDS: methylnaltrexone br 12mg/0.6ml inj***SubQ only SQ SCH (07:24)
[2018-11-15] MEDS: clonazePAM 1mg tablet PO PRN ×2 (07:33→20:35)
[2018-11-15 08:00] VITALS: BP 117/80
[2018-11-15] MEDS: LORazepam 1 MG tablet PO PRN ×2 (11:54→17:27)
[2018-11-15 12:00] VITALS: BP 121/80
[2018-11-15 18:00] VITALS: BP 127/78
--- NOTE | 2018-11-15 18:44 | NUR ---
Problems reprioritized. Patient report given, questions answered & plan of care reviewed with KATARINA Wang.
[2018-11-15] MEDS: traMADol 50MG tablet PO PRN (20:34)
[2018-11-15] MEDS: gabapentin 400mg capsule PO SCH (20:34)
[2018-11-15] MEDS: PALIPERIDONE 3 MG TAB.ER.24 PO SCH (20:35)
[2018-11-16] VITALS: BP 123/80
[2018-11-16] MEDS: oxyCODONE/APAP 10/325mg tablet PO PRN ×2 (00:33→07:01)
--- NOTE | 2018-11-16 03:16 | NUR ---
Patient is concerned about is bowels and has been requesting MOM a couple times this shift. Per patient he had a bowel movement yesterday morning. I told him that MOM is for constipation and that he was not constipated since he had a bowel movement on the 6 & 7. He was informed that if he felt gas build up in his abdomen that he needed to walk more. He is up walking now. Patient has obsessive tendencies and has to be re assured multiple times about the same things. I will continue to assure him.
[2018-11-16 05:01] LABS: BASOPHILS % (AUTO) 0.4 % (0-1); EOSINOPHILS # (AUTO) 0.3 X10'3 (0-0.9); EOSINOPHILS % (AUTO) 3.3 % (0-6); HEMATOCRIT 34.1 % (42.0-52.0); HEMOGLOBIN 11.6 g/dl (14.0-17.9); LYMPHOCYTES # (AUTO) 1.3 X10'3 (1.1-4.8); MEAN CORPUSCULAR VOLUME 88.4 FL (78-98); MEAN PLATELET VOLUME 8.1 FL (7.4-10.4); MONOCYTES # (AUTO) 0.9 X10'3 (0-0.9); MONOCYTES % (AUTO) 9.8 % (2-12); NEUTROPHILS # (AUTO) 6.3 X10'3 (1.8-7.7); NEUTROPHILS % (AUTO) 71.5 % (42-75); PLATELET COUNT 299 X10'3 (140-440); RED BLOOD COUNT 3.86 X10'6 (4.70-6.10); RED CELL DISTRIBUTION WIDTH 14.1 % (11.5-14.5); WHITE BLOOD COUNT 8.8 X10'3 (4.5-11.0)
[2018-11-16] MEDS: traMADol 50MG tablet PO PRN (05:07)
[2018-11-16 05:11] LABS: ALBUMIN 3.1 G/DL (3.4-5.0); ANION GAP 10 (8-16); BLOOD UREA NITROGEN 3 MG/DL (7-18); BUN/CREATININE RATIO 3.3 (5.4-32.0); CALCIUM 8.7 MG/DL (8.5-10.1); CHLORIDE 105 MMOL/L (99-107); CREATININE 0.92 MG/DL (0.60-1.10); GLUCOSE 96 MG/DL (70-104); POTASSIUM 4.2 MMOL/L (3.5-5.1); SODIUM 142 MMOL/L (135-145); TOTAL CARBON DIOXIDE 27.4 MMOL/L (24-32); eGFR 89 ML/MIN
--- NOTE | 2018-11-16 06:33 | NUR ---
Patient in room [facility]. I have received report from KATARINA Wang and had the opportunity to ask questions and assume patient care.
--- NOTE | 2018-11-16 06:33 | NUR ---
Problems reprioritized. Patient report given, questions answered & plan of care reviewed with nomi Sheriff.
[2018-11-16 07:00] VITALS: BP 124/83
[2018-11-16] MEDS: pantoprazole 40mg Tablet.DR PO SCH (07:00)
[2018-11-16] MEDS: clonazePAM 1mg tablet PO PRN (07:01)
[2018-11-16] MEDS: CefTRIAXone 2gm/D5W 50ml 50 ML IV SCH (07:02)
[2018-11-16] MEDS: nicotine 21mg patch - 24 hr TD SCH (07:02)
[2018-11-16] MEDS: venlafaxine XR 75mg capsule (Q24H) PO SCH (07:05)
[2018-11-16] MEDS: lactobacillus rhamnosus 10,000 MMU CELLS/CAPSULE PO SCH (07:06)
[2018-11-16] MEDS: cloNIDine 0.1 mg tablet PO SCH (07:06)
[2018-11-16] MEDS: enoxaparin 40mg/0.4ml syringe SUBCUT SCH (07:07)
--- NOTE | 2018-11-16 09:36 | NUR ---
Initial: Pt initially admit to U and transferred to the floors with symptomatic ventral hernia. Pt now s/p umbilical hernia repair. Diet has since been advanced to regular and pt documented with average 75% PO intake. Prior to floor transfer pt was eating 75-100% on regular diet. [facility] 11/15. Will continue to follow. Recommendations: 1) Continue regular diet 2) Monitor need for ONS 3) Continue routine bowel care 4) Wt per rx Addendum: 11/16/18 at [address] Amended: Links added.
--- NOTE | 2018-11-16 09:54 | NUR ---
DC'd patient's surgical drain, minimal output of 10 cc's. sutures removed, drain removed and patient tolerated very well; reports no pain or discomfort.
[2018-11-16] MEDS ORDERED: MYL80T PO (09:57)
[2018-11-16] MEDS ORDERED: PANT40TA4 PO (09:57)
[2018-11-16] MEDS ORDERED: LACT1CAP26 PO (09:57)
[2018-11-16] MEDS ORDERED: CEFD300C3 PO (09:57)
[2018-11-16 11:00] VITALS: BP 125/77
[2018-11-16] MEDS: LORazepam 1 MG tablet PO PRN (11:44)
--- NOTE | 2018-11-16 12:44 | NUR ---
Clothing left in room at discharge, message left on cell phone about this.
== END 2018-11-16 12:39 | disposition home or self-care (01) | DRG 227 ==
LOC: SUR 3N 08:40
PROVIDERS: ADMIT Internal Medicine; ATTEND Family Medicine
PROC: 3E0T3BZ Introduction of Anesthetic Agent into Peripheral Nerves and Plexi, Percutaneous Approach (ICD-10-PCS; 2018-11-11)
PROC: 0KNL0ZZ Release Left Abdomen Muscle, Open Approach (ICD-10-PCS; 2018-11-11)
PROC: 0KNK0ZZ Release Right Abdomen Muscle, Open Approach (ICD-10-PCS; 2018-11-11)
PROC: 0WUF0KZ Supplement Abdominal Wall with Nonautologous Tissue Substitute, Open Approach (ICD-10-PCS; principal; 2018-11-11 10:02)
PROC: 3E02340 Introduction of Influenza Vaccine into Muscle, Percutaneous Approach (ICD-10-PCS; 2018-11-12)
DX: K43.9 Ventral hernia without obstruction or gangrene (principal); K56.7 Ileus, unspecified; E66.9 Obesity, unspecified; G47.30 Sleep apnea, unspecified; F43.10 Post-traumatic stress disorder, unspecified; J44.9 Chronic obstructive pulmonary disease, unspecified; F32.9 Major depressive disorder, single episode, unspecified; F42.9 Obsessive-compulsive disorder, unspecified; Z23 Encounter for immunization; Z68.42 Body mass index [BMI] 45.0-49.9, adult
CPT/HCPCS: 36415; 80048; 80053; 82948; 83605; 85025; 85610; 85730; 86885; 86900; 86901; 87040; 87081; 93005; 94640; 94760; 97116; 97162; 97530; A4215; A4618; A6258; A6402; A7000; C1758; C1781; C9290; C9399; G0378; J0131; J0690; J0696; J1170; J1580; J1650; J1885; J2001; J2175; J2212; J2250; J2405; J2704; J2710; J3010; J3490; J7030; J7060; J7120; Q2037

== ENCOUNTER 2018-11-23 13:45 | Inpatient (IN) | payer MEDICAID ==
[~2018-11-23] VITALS: Ht 182.9 cm; Wt 171.9 kg
[~2018-11-23 13:45] MED LIST changes: -ALBU18HF2 INH; +ALBU8.5H8 INH; +CEFD300C3 PO; -CLON-286 PO; +CLON0.1T PO; -CLON0.1T20 PO; +CLON2TAB PO; -COL100C PO; +DOCU-148 PO; -GABA-534 PO; +GABA400C PO; +LACT1CAP26 PO; -LIDO700A47 TP; +MYL80T PO; -NICO-687 TD; +NICO1PAT36 TOP; +PALI3TAB PO; -PALI6TAB6 PO; +PANT40TA4 PO; -VENL150T3 PO; +VENL75CA55 PO
--- NOTE | 2018-11-23 23:00 | NUR ---
Received report from Jacquelyn from [facility] in [place]. Patient is about to leave road transportation.
--- NOTE | 2018-11-24 01:20 | NUR ---
Patient arrived to floor and settled into room 340A with his belongings at bedside.
[2018-11-24 01:35] VITALS: BP 178/111
[2018-11-24 01:40] VITALS: BP 107/103
[2018-11-24] MEDS ORDERED: magnesium 2GM in 50ml NS 50 ML IV PRN (02:15)
[2018-11-24] MEDS ORDERED: morphine 2 MG/ML inj. syringe IV PRN ×2 (02:15)
[2018-11-24] MEDS ORDERED: potassium CL 10mEq/100ml bag 100 ML IV PRN ×2 (02:15)
[2018-11-24] MEDS ORDERED: magnesium 4gm in 100ml NS 100 ML IV PRN (02:15)
[2018-11-24] MEDS ORDERED: mag hydrox/Alum hydrox/simeth 30ml oral suspension PO PRN (02:15)
[2018-11-24] MEDS ORDERED: vancomycin/NS 1 GM ADD-VANTAGE 250 ML IV ONE (02:15)
[2018-11-24] MEDS ORDERED: ondansetron/PF 4mg/2ml inj IV PRN (02:15)
[2018-11-24] MEDS ORDERED: magnesium Cl slow-release 64mg tablet PO PRN (02:15)
[2018-11-24] MEDS ORDERED: potassium Cl 20 mEq SR tablet PO PRN ×2 (02:15)
[2018-11-24] MEDS ORDERED: LORazepam 2 mg/ml vial IV ONE (02:25)
[2018-11-24] MEDS ORDERED: HYDROmorphone 1 mg/ml syringe IV ONE (02:25)
[2018-11-24] MEDS: ondansetron/PF 4mg/2ml inj IV PRN (02:28)
[2018-11-24] MEDS: normal saline 1000ml 1,000 ML IV SCH ×3 (02:48→22:14)
[2018-11-24] MEDS: diatr meglu/diatrizoate 30ml oral sol.-(3 dose) bottle PO SCH ×3 (03:42→10:24)
[2018-11-24 03:47] LABS: BASOPHILS % (AUTO) 0.3 % (0-1); EOSINOPHILS % (AUTO) 0.5 % (0-6); HEMATOCRIT 30.2 % (42.0-52.0); HEMOGLOBIN 10.2 g/dl (14.0-17.9); LYMPHOCYTES % (AUTO) 11.2 % (21-51); MEAN CORPUSCULAR HEMOGLOBIN 29.7 PG (27.0-31.0); MEAN CORPUSCULAR HGB CONC 33.9 g/dL (33.0-36.5); MEAN CORPUSCULAR VOLUME 87.6 FL (78-98); MEAN PLATELET VOLUME 7.5 FL (7.4-10.4); MONOCYTES # (AUTO) 0.6 X10'3 (0-0.9); NEUTROPHILS # (AUTO) 7.4 X10'3 (1.8-7.7); PLATELET COUNT 239 X10'3 (140-440); RED BLOOD COUNT 3.45 X10'6 (4.70-6.10); RED CELL DISTRIBUTION WIDTH 14.3 % (11.5-14.5); WHITE BLOOD COUNT 9.1 X10'3 (4.5-11.0)
[2018-11-24 04:02] LABS: ALANINE AMINOTRANSFERASE 22 U/L (12-78); ALBUMIN 2.8 G/DL (3.4-5.0); ALBUMIN/GLOBULIN RATIO 0.6 (1.1-1.5); ALKALINE PHOSPHATASE 76 IU/L (46-116); ANION GAP 8 (8-16); ASPARTATE AMINO TRANSFERASE 17 U/L (10-37); BILIRUBIN,TOTAL 0.4 MG/DL (0.1-1.0); BLOOD UREA NITROGEN 5 MG/DL (7-18); CALCIUM 7.8 MG/DL (8.5-10.1); CHLORIDE 108 MMOL/L (99-107); GLUCOSE 113 MG/DL (70-104); POTASSIUM 3.6 MMOL/L (3.5-5.1); SODIUM 143 MMOL/L (135-145); TOTAL CARBON DIOXIDE 26.7 MMOL/L (24-32); TOTAL PROTEIN 7.2 G/DL (6.4-8.2); eGFR 81 ML/MIN
[2018-11-24 04:30] VITALS: BP 154/98
--- NOTE | 2018-11-24 06:50 | NUR ---
Problems reprioritized. Patient report given, questions answered & plan of care reviewed with Venessa BRAY.
[2018-11-24 07:00] LABS: % IRON SATURATION 8 % (11-46); IRON 14 UG/DL (53-167); TOTAL IRON BINDING CAPACITY 185 UG/DL (259-388)
[2018-11-24] MEDS: cloNIDine 0.1 mg tablet PO SCH ×3 (07:36→20:02)
[2018-11-24] MEDS: cefepime 1GM/NS ADD-VANTAGE 100 ML IV SCH ×3 (07:38→23:54)
[2018-11-24] MEDS: enoxaparin 40mg/0.4ml syringe SQ SCH (07:38)
[2018-11-24] MEDS: HYDROmorphone 1 mg/ml syringe IV PRN ×4 (07:56→23:54)
[2018-11-24 08:00] VITALS: BP 159/96
[2018-11-24] MEDS ORDERED: heparin, porcine 5000 units/ml vial SQ SCH (08:00)
[2018-11-24] MEDS: K and/or MAG REPLACEMENT MC SCH (08:00)
[2018-11-24] MEDS: vancomycin/NS 1 GM ADD-VANTAGE 250 ML IV SCH ×3 (08:25→23:51)
--- NOTE | 2018-11-24 09:00 | NUR ---
Bilateral lower extremity edema noted, non pitting. Addendum: 11/24/18 at 1025 by Coby BONILLA Amended: Links added.
[2018-11-24] MEDS ORDERED: iohexol 300mg/ml 100ml inj. ONE (10:17)
[2018-11-24] MEDS: acetaminophen 325mg tablet PO PRN ×2 (11:50→20:05)
[2018-11-24] MEDS: LORazepam 2 mg/ml vial IV PRN ×2 (12:51→19:54)
[2018-11-24 15:03] VITALS: BP 156/103
[2018-11-24 15:04] LABS: PARTIAL THROMBOPLASTIN TIME 31 SECONDS (22-32)
--- NOTE | 2018-11-24 18:22 | NUR ---
GAVE REPORT TO ZAY BRAY
--- NOTE | 2018-11-24 18:44 | NUR ---
Patient in room [facility]. I have received report from KATARINA Clifford and had the opportunity to ask questions and assume patient care.
[2018-11-24] MEDS: lactobacillus rhamnosus 10,000 MMU CELLS/CAPSULE PO SCH (19:56)
[2018-11-24 20:00] VITALS: BP 162/91
[2018-11-24] MEDS: benzonatate 100mg capsule PO PRN (21:07)
[2018-11-24] MEDS: Melatonin 3mg tablet PO PRN (22:48)
[2018-11-25] VITALS: BP 135/82
[2018-11-25] MEDS: LORazepam 2 mg/ml vial IV PRN ×4 (01:34→13:20)
[2018-11-25] MEDS: acetaminophen 325mg tablet PO PRN (02:10)
[2018-11-25] MEDS: ondansetron/PF 4mg/2ml inj IV PRN (02:51)
[2018-11-25] MEDS: HYDROmorphone 1 mg/ml syringe IV PRN ×5 (04:02→23:27)
[2018-11-25] MEDS: normal saline 1000ml 1,000 ML IV SCH ×2 (05:30→18:14)
--- NOTE | 2018-11-25 06:17 | NUR ---
Problems reprioritized. Patient report given, questions answered & plan of care reviewed with KATARINA Clifford.
--- NOTE | 2018-11-25 06:51 | NUR ---
Patient in room [facility]. I have received report from ZAY BRAY and had the opportunity to ask questions and assume patient care.
--- NOTE | 2018-11-25 07:08 | NUR ---
Pt oral temp 100.6, walked and retook temp-99.5 oral Addendum: 11/25/18 at 0709 by Coby BONILLA Amended: Links added.
[2018-11-25] MEDS ORDERED: VANCOMYCIN LEVEL IV ONE (07:30)
[2018-11-25] MEDS: enoxaparin 40mg/0.4ml syringe SQ SCH (07:34)
[2018-11-25] MEDS: cefepime 1GM/NS ADD-VANTAGE 100 ML IV SCH (07:34)
[2018-11-25] MEDS: cloNIDine 0.1 mg tablet PO SCH ×3 (07:36→22:29)
[2018-11-25] MEDS: lactobacillus rhamnosus 10,000 MMU CELLS/CAPSULE PO SCH ×2 (07:36→19:06)
[2018-11-25] MEDS: vancomycin/NS 1 GM ADD-VANTAGE 250 ML IV SCH (07:39)
[2018-11-25] MEDS: K and/or MAG REPLACEMENT MC SCH (08:00)
[2018-11-25 08:07] LABS: BASOPHILS % (AUTO) 0.4 % (0-1); EOSINOPHILS # (AUTO) 0.1 X10'3 (0-0.9); EOSINOPHILS % (AUTO) 0.7 % (0-6); HEMATOCRIT 25.7 % (42.0-52.0); HEMOGLOBIN 8.5 g/dl (14.0-17.9); LYMPHOCYTES # (AUTO) 1.3 X10'3 (1.1-4.8); MEAN CORPUSCULAR HEMOGLOBIN 29.1 PG (27.0-31.0); MEAN CORPUSCULAR HGB CONC 33.2 g/dL (33.0-36.5); MEAN CORPUSCULAR VOLUME 87.5 FL (78-98); MEAN PLATELET VOLUME 7.6 FL (7.4-10.4); MONOCYTES # (AUTO) 0.9 X10'3 (0-0.9); MONOCYTES % (AUTO) 7.8 % (2-12); NEUTROPHILS # (AUTO) 9.2 X10'3 (1.8-7.7); NEUTROPHILS % (AUTO) 80.1 % (42-75); PLATELET COUNT 225 X10'3 (140-440); RED BLOOD COUNT 2.94 X10'6 (4.70-6.10); RED CELL DISTRIBUTION WIDTH 14.5 % (11.5-14.5); WHITE BLOOD COUNT 11.5 X10'3 (4.5-11.0)
[2018-11-25 08:20] LABS: PARTIAL THROMBOPLASTIN TIME 28 SECONDS (22-32)
[2018-11-25 08:22] LABS: ALANINE AMINOTRANSFERASE 31 U/L (12-78); ALBUMIN 2.7 G/DL (3.4-5.0); ALBUMIN/GLOBULIN RATIO 0.6 (1.1-1.5); ALKALINE PHOSPHATASE 81 IU/L (46-116); ANION GAP 9 (8-16); ASPARTATE AMINO TRANSFERASE 29 U/L (10-37); BILIRUBIN,TOTAL 0.5 MG/DL (0.1-1.0); BLOOD UREA NITROGEN 4 MG/DL (7-18); BUN/CREATININE RATIO 4.2 (5.4-32.0); CALCIUM 7.4 MG/DL (8.5-10.1); CHLORIDE 104 MMOL/L (99-107); CREATININE 0.96 MG/DL (0.60-1.10); GLUCOSE 104 MG/DL (70-104); MAGNESIUM 1.8 MG/DL (1.5-2.4); POTASSIUM 3.5 MMOL/L (3.5-5.1); SODIUM 139 MMOL/L (135-145); TOTAL CARBON DIOXIDE 26.2 MMOL/L (24-32); TOTAL PROTEIN 7.3 G/DL (6.4-8.2); VANCOMYCIN,TROUGH 14.3 UG/ML (6.0-14.0); eGFR 85 ML/MIN
[2018-11-25 08:50] VITALS: BP 153/88
[2018-11-25 10:19] VITALS: BP 153/88
[2018-11-25 11:46] LABS: BFAPPEAR BLOODY; BFCOLOR RED; BFVOLUME 44 ML
[2018-11-25 11:47] LABS: BF RBC COUNT 33750 /CU MM; BF WBC COUNT 24250 /CU MM (0-1000); EOSINOPHILS,BODY FLUID 5 %; LYMPHOCYTES,BODY FLUID 1 %; MONOCYTES,BODY FLUID 0 %; NEUTROPHILS,BODY FLUID 94 %
--- NOTE | 2018-11-25 15:15 | NUR ---
Student documentation: I have reviewed all interventions, assessments performed and documented by .
--- NOTE | 2018-11-25 15:16 | NUR ---
Student Medication Administration: all medication were reviewed, dispensed, administered and documented per hospital policy by Giuseppe DUMONT
[2018-11-25] MEDS: cefepime 1GM in D5W 50mL 50 ML IV SCH ×2 (15:42→23:25)
[2018-11-25 18:00] VITALS: BP 144/90
[2018-11-25] MEDS ORDERED: albuterol 2.5 MG/3 ML nebule NEB PRN (18:10)
--- NOTE | 2018-11-25 18:23 | NUR ---
Patient in room [facility]. I have received report from KATARINA Clifford and had the opportunity to ask questions and assume patient care.
--- NOTE | 2018-11-25 18:23 | NUR ---
GAVE REPORT TO SCOTT BRAY
[2018-11-25] MEDS: clonazePAM 1mg tablet PO SCH (19:07)
[2018-11-25] MEDS ORDERED: cloNIDine 0.1 mg tablet PO SCH (21:00)
[2018-11-25] MEDS: PALIPERIDONE 3 MG TAB.ER.24 PO SCH (22:29)
[2018-11-25] MEDS: gabapentin 400mg capsule PO SCH (22:29)
[2018-11-26] VITALS: BP 140/81
[2018-11-26] MEDS: normal saline 1000ml 1,000 ML IV SCH ×3 (04:14→22:14)
[2018-11-26] MEDS: HYDROmorphone 1 mg/ml syringe IV PRN ×2 (04:35→09:25)
[2018-11-26 05:49] LABS: ALANINE AMINOTRANSFERASE 57 U/L (12-78); ALBUMIN 2.5 G/DL (3.4-5.0); ALBUMIN/GLOBULIN RATIO 0.6 (1.1-1.5); ALKALINE PHOSPHATASE 93 IU/L (46-116); ANION GAP 9 (8-16); ASPARTATE AMINO TRANSFERASE 64 U/L (10-37); BILIRUBIN,TOTAL 0.4 MG/DL (0.1-1.0); BLOOD UREA NITROGEN 5 MG/DL (7-18); CALCIUM 7.2 MG/DL (8.5-10.1); CHLORIDE 106 MMOL/L (99-107); CREATININE 0.83 MG/DL (0.60-1.10); GLUCOSE 114 MG/DL (70-104); POTASSIUM 3.4 MMOL/L (3.5-5.1); SODIUM 140 MMOL/L (135-145); TOTAL CARBON DIOXIDE 24.6 MMOL/L (24-32); TOTAL PROTEIN 6.9 G/DL (6.4-8.2); eGFR > 90 ML/MIN
--- NOTE | 2018-11-26 06:30 | NUR ---
Problems reprioritized. Patient report given, questions answered & plan of care reviewed with KATARINA Morrell.
[2018-11-26] MEDS: cloNIDine 0.1 mg tablet PO SCH ×3 (07:26→20:09)
[2018-11-26] MEDS: venlafaxine XR 75mg capsule (Q24H) PO SCH (07:26)
[2018-11-26] MEDS: lactobacillus rhamnosus 10,000 MMU CELLS/CAPSULE PO SCH ×2 (07:26→20:07)
[2018-11-26] MEDS: enoxaparin 40mg/0.4ml syringe SQ SCH (07:27)
[2018-11-26] MEDS: clonazePAM 1mg tablet PO SCH ×2 (07:27→20:06)
[2018-11-26] MEDS: nicotine 21mg patch - 24 hr TD SCH (07:28)
[2018-11-26] MEDS: K and/or MAG REPLACEMENT MC SCH (08:43)
[2018-11-26 09:22] LABS: BASOPHILS % (AUTO) 0.5 % (0-1); EOSINOPHILS # (AUTO) 0.2 X10'3 (0-0.9); EOSINOPHILS % (AUTO) 1.9 % (0-6); HEMATOCRIT 26.2 % (42.0-52.0); HEMOGLOBIN 8.9 g/dl (14.0-17.9); LYMPHOCYTES # (AUTO) 1.3 X10'3 (1.1-4.8); LYMPHOCYTES % (AUTO) 15.1 % (21-51); MEAN CORPUSCULAR HEMOGLOBIN 29.5 PG (27.0-31.0); MEAN CORPUSCULAR HGB CONC 33.9 g/dL (33.0-36.5); MEAN CORPUSCULAR VOLUME 87.1 FL (78-98); MEAN PLATELET VOLUME 7.6 FL (7.4-10.4); MONOCYTES # (AUTO) 0.7 X10'3 (0-0.9); MONOCYTES % (AUTO) 7.5 % (2-12); NEUTROPHILS # (AUTO) 6.6 X10'3 (1.8-7.7); PLATELET COUNT 233 X10'3 (140-440); RED BLOOD COUNT 3.01 X10'6 (4.70-6.10); RED CELL DISTRIBUTION WIDTH 14.8 % (11.5-14.5); WHITE BLOOD COUNT 8.7 X10'3 (4.5-11.0)
[2018-11-26] MEDS: cefepime 1GM in D5W 50mL 50 ML IV SCH ×2 (09:29→16:31)
[2018-11-26 11:00] VITALS: BP 143/96
[2018-11-26] MEDS: oxyCODONE/APAP 10/325mg tablet PO PRN ×2 (12:11→20:08)
[2018-11-26] MEDS: LORazepam 2 mg/ml vial IV PRN (15:03)
[2018-11-26] MEDS ORDERED: VANCOMYCIN LEVEL IV ONE (15:30)
[2018-11-26 18:00] VITALS: BP 130/86
--- NOTE | 2018-11-26 18:10 | NUR ---
Patient in room [facility]. I have received report from ANTHONY BRAY and had the opportunity to ask questions and assume patient care. Addendum: 11/26/18 at 2321 by Jumana Carpenter RN Amended: Links added.
--- NOTE | 2018-11-26 18:18 | NUR ---
Problems reprioritized. Patient report given, questions answered & plan of care reviewed with PAOLO BRAY.
[2018-11-26] MEDS: docusate sod 100mg capsule PO PRN (20:05)
[2018-11-26] MEDS: benzonatate 100mg capsule PO PRN (20:06)
[2018-11-26] MEDS: gabapentin 400mg capsule PO SCH (20:06)
[2018-11-26] MEDS: PALIPERIDONE 3 MG TAB.ER.24 PO SCH (20:08)
[2018-11-26] MEDS: Melatonin 3mg tablet PO PRN (20:08)
--- NOTE | 2018-11-26 20:10 | NUR ---
bar code part of it missing on clonidine and would not scanned ended up confirming and administering it.
--- NOTE | 2018-11-26 21:00 | NUR ---
PER PT REQUEST AND TENDERNESS LEFT AC DC'D CATH INTACT WITH SLIGHT REDNESS TO THE SITE. RIGHT AC IV REMAINS IN PLACE.
--- NOTE | 2018-11-26 23:00 | NUR ---
PT RESTING EYES CLOSED WITHOUT CHANGES.
[2018-11-27] VITALS: BP 167/113
[2018-11-27] MEDS: HYDROmorphone 1 mg/ml syringe IV PRN ×2 (00:07→12:03)
[2018-11-27] MEDS: cefepime 1GM in D5W 50mL 50 ML IV SCH ×2 (00:40→08:05)
--- NOTE | 2018-11-27 01:00 | NUR ---
ATTEMPT X1 TO PUT AN IV IN RIGHT RADIAL AREA SHOULD RIGHT AC IV GIVES OUT WITHOUT SUCCESS. PT WANTED A SECOND ONE BUT NO SUCCESS. PT STATED LEFT AC IV WAS PUT IN WITH ULTRASOUND USED A BLACKOUT FLASHLIGHT WHEN ATTEMPTING THIS IV.
[2018-11-27] MEDS: LORazepam 2 mg/ml vial IV PRN (01:53)
--- NOTE | 2018-11-27 02:02 | NUR ---
pt medicated for anxiety with iv ativan per request.
[2018-11-27] MEDS: oxyCODONE/APAP 10/325mg tablet PO PRN ×4 (03:42→22:46)
--- NOTE | 2018-11-27 04:02 | NUR ---
pt medicated for pain and teaching done regarding taking antibiotics that pain medications need to be monitored as over medicating affectts the liver and gave pt examples. Mom present with this.
--- NOTE | 2018-11-27 04:58 | NUR ---
mom remains in room with son. pt resting no changes.
[2018-11-27 05:14] LABS: BASOPHILS # (AUTO) 0.1 X10'3 (0-0.2); BASOPHILS % (AUTO) 0.7 % (0-1); EOSINOPHILS # (AUTO) 0.2 X10'3 (0-0.9); EOSINOPHILS % (AUTO) 2.5 % (0-6); HEMATOCRIT 26.3 % (42.0-52.0); LYMPHOCYTES # (AUTO) 1.6 X10'3 (1.1-4.8); LYMPHOCYTES % (AUTO) 19.7 % (21-51); MEAN CORPUSCULAR HEMOGLOBIN 29.7 PG (27.0-31.0); MEAN CORPUSCULAR VOLUME 87.4 FL (78-98); MEAN PLATELET VOLUME 7.6 FL (7.4-10.4); MONOCYTES # (AUTO) 0.4 X10'3 (0-0.9); MONOCYTES % (AUTO) 5.5 % (2-12); NEUTROPHILS # (AUTO) 5.7 X10'3 (1.8-7.7); NEUTROPHILS % (AUTO) 71.6 % (42-75); PLATELET COUNT 276 X10'3 (140-440); RED BLOOD COUNT 3.02 X10'6 (4.70-6.10); RED CELL DISTRIBUTION WIDTH 14.6 % (11.5-14.5)
[2018-11-27 05:26] LABS: ALANINE AMINOTRANSFERASE 53 U/L (12-78); ALBUMIN 2.7 G/DL (3.4-5.0); ALBUMIN/GLOBULIN RATIO 0.6 (1.1-1.5); ALKALINE PHOSPHATASE 95 IU/L (46-116); ANION GAP 9 (8-16); ASPARTATE AMINO TRANSFERASE 34 U/L (10-37); BILIRUBIN,TOTAL 0.4 MG/DL (0.1-1.0); BLOOD UREA NITROGEN 4 MG/DL (7-18); BUN/CREATININE RATIO 5.3 (5.4-32.0); CALCIUM 7.8 MG/DL (8.5-10.1); CHLORIDE 104 MMOL/L (99-107); CREATININE 0.76 MG/DL (0.60-1.10); GLUCOSE 106 MG/DL (70-104); MAGNESIUM 1.9 MG/DL (1.5-2.4); POTASSIUM 3.8 MMOL/L (3.5-5.1); SODIUM 139 MMOL/L (135-145); TOTAL CARBON DIOXIDE 25.7 MMOL/L (24-32); TOTAL PROTEIN 7.3 G/DL (6.4-8.2); eGFR > 90 ML/MIN
--- NOTE | 2018-11-27 06:27 | NUR ---
Problems reprioritized. Patient report given, questions answered & plan of care reviewed with Aileen Gordon. Addendum: 11/27/18 at 0628 by Jumana Carpenter RN Amended: Links added.
--- NOTE | 2018-11-27 06:40 | NUR ---
Patient in room [facility]. I have received report from Jumana BRAY and had the opportunity to ask questions and assume patient care.
[2018-11-27 08:00] VITALS: BP 142/78
[2018-11-27] MEDS: K and/or MAG REPLACEMENT MC SCH (08:00)
[2018-11-27] MEDS: venlafaxine XR 75mg capsule (Q24H) PO SCH ×2 (08:00→20:50)
[2018-11-27] MEDS: nicotine 21mg patch - 24 hr TD SCH (08:15)
[2018-11-27] MEDS: lactobacillus rhamnosus 10,000 MMU CELLS/CAPSULE PO SCH ×2 (08:21→19:48)
[2018-11-27] MEDS: cloNIDine 0.1 mg tablet PO SCH ×3 (08:21→20:49)
[2018-11-27] MEDS: enoxaparin 40mg/0.4ml syringe SQ SCH (08:22)
[2018-11-27] MEDS: clonazePAM 1mg tablet PO SCH ×2 (08:23→19:48)
[2018-11-27] MEDS: levoFLOXACIN-Levaquin 750MG/D5 150 ML IV SCH (10:59)
[2018-11-27] MEDS ORDERED: levoFLOXACIN 750MG TABLET PO SCH (11:00)
[2018-11-27 11:30] VITALS: BP_SYST 140; BP_SYST 85; BP_DIAS 43; BP_DIAS 85
--- NOTE | 2018-11-27 15:15 | NUR ---
Nutrition consult re: "pt wants to lose wt". Pt seen at bedside provided with written general health nutrition therapy education with wt loss tips with thorough verbal review. Pt admit with abdominal wall cellulitis with abscess; pt provided with written and verbal protein education. All of patient's questions were answered at this time. RD contact information was provided. Pt denies double protein at this time however requests double vegetables BIDLD, d/w dietary. Pt currently on regular diet documented with 75-100% PO intake. Will continue to follow. Addendum: 11/27/18 at [address] Amended: Links added.
[2018-11-27 18:00] VITALS: BP_SYST 142; BP_SYST 163; BP_DIAS 98
--- NOTE | 2018-11-27 18:10 | NUR ---
Patient in room [facility]. I have received report from KATARINA Mast and had the opportunity to ask questions and assume patient care.
--- NOTE | 2018-11-27 18:38 | NUR ---
Problems reprioritized. Patient report given, questions answered & plan of care reviewed with Sam BRAY.
[2018-11-27] MEDS: gabapentin 400mg capsule PO SCH (20:49)
[2018-11-27] MEDS: PALIPERIDONE 3 MG TAB.ER.24 PO SCH (20:50)
--- NOTE | 2018-11-27 22:11 | NUR ---
pt complaining of pain in legs from swelling, encouraged to elevate legs when laying down and ambulate more. offered SCD machine for when in bed and pt declined
--- NOTE | 2018-11-27 22:40 | NUR ---
Charge nurse received phone call from surgeon regarding pt directly called him with concern about pain management before alerting charge and primary nurses. Discussed with pt and family plan of care and current pain control plan and reinforced to bring concerns with current plan with bedside nurse and charge nurse. pt still has concerns about increased swelling in lower extremities and pain, states "can feel blood vessels popping when standing up" reinforced elevating legs when laying in bed and ambulating frequently and further distances as tolerated to aid with relieving generalized aches from being in bed and promote circulation. still refusing SCDs when in bed, heated pack was given. educated on importance of measuring intake and output of urine and writing amount down on I&O sheet.
[2018-11-27] MEDS: LORazepam 1 MG tablet PO PRN (22:46)
[2018-11-28] VITALS: BP 162/97
[2018-11-28] MEDS: Melatonin 3mg tablet PO PRN ×2 (00:53→20:51)
--- NOTE | 2018-11-28 01:13 | NUR ---
pt ambulating in halls with [employer] drink in hand after previously asking for something to help sleep and Melatonin was given. Pt stated he wasn't trying to sleep but instead "knock down the pain. my belly is roaring right now and want some pain medicine to help" Addendum: 11/28/18 at 0151 by Derrick Gonzales RN pt says he is able to drink "like 10 of these and sleep no problem" also noted was not ambulating with abdominal binder on r/t the it being uncomfortable. reinforced need to wear while ambulating to decrease pain from previous surgery
[2018-11-28] MEDS: docusate sod 100mg capsule PO PRN (01:26)
[2018-11-28] MEDS: HYDROmorphone 1 mg/ml syringe IV PRN ×2 (01:26→05:32)
[2018-11-28 05:22] LABS: BASOPHILS # (AUTO) 0.1 X10'3 (0-0.2); BASOPHILS % (AUTO) 0.8 % (0-1); EOSINOPHILS # (AUTO) 0.2 X10'3 (0-0.9); EOSINOPHILS % (AUTO) 2.8 % (0-6); HEMATOCRIT 27.5 % (42.0-52.0); HEMOGLOBIN 9.3 g/dl (14.0-17.9); LYMPHOCYTES # (AUTO) 1.6 X10'3 (1.1-4.8); LYMPHOCYTES % (AUTO) 19.2 % (21-51); MEAN CORPUSCULAR HEMOGLOBIN 29.3 PG (27.0-31.0); MEAN PLATELET VOLUME 7.5 FL (7.4-10.4); MONOCYTES # (AUTO) 0.6 X10'3 (0-0.9); MONOCYTES % (AUTO) 7.1 % (2-12); NEUTROPHILS # (AUTO) 5.8 X10'3 (1.8-7.7); NEUTROPHILS % (AUTO) 70.1 % (42-75); PLATELET COUNT 345 X10'3 (140-440); RED BLOOD COUNT 3.19 X10'6 (4.70-6.10); RED CELL DISTRIBUTION WIDTH 14.5 % (11.5-14.5); WHITE BLOOD COUNT 8.3 X10'3 (4.5-11.0)
[2018-11-28 05:45] LABS: ALBUMIN 2.8 G/DL (3.4-5.0); ANION GAP 12 (8-16); BLOOD UREA NITROGEN 4 MG/DL (7-18); BUN/CREATININE RATIO 4.9 (5.4-32.0); CALCIUM 8.3 MG/DL (8.5-10.1); CHLORIDE 105 MMOL/L (99-107); CREATININE 0.81 MG/DL (0.60-1.10); GLUCOSE 109 MG/DL (70-104); MAGNESIUM 1.9 MG/DL (1.5-2.4); POTASSIUM 3.7 MMOL/L (3.5-5.1); SODIUM 143 MMOL/L (135-145); TOTAL CARBON DIOXIDE 25.6 MMOL/L (24-32); eGFR > 90 ML/MIN
[2018-11-28 06:30] VITALS: BP 159/97
--- NOTE | 2018-11-28 06:35 | NUR ---
Patient in room [facility]. I have received report from KATARINA Vargas and had the opportunity to ask questions and assume patient care.
--- NOTE | 2018-11-28 06:50 | NUR ---
Problems reprioritized. Patient report given, questions answered & plan of care reviewed with KATARINA Anne.
[2018-11-28] MEDS: K and/or MAG REPLACEMENT MC SCH (06:56)
[2018-11-28] MEDS ORDERED: VANCOMYCIN LEVEL IV ONE (07:30)
[2018-11-28] MEDS: levoFLOXACIN-Levaquin 750MG/D5 150 ML IV SCH (08:46)
[2018-11-28] MEDS: nicotine 21mg patch - 24 hr TD SCH (08:47)
[2018-11-28] MEDS: clonazePAM 1mg tablet PO SCH ×2 (08:47→20:51)
[2018-11-28] MEDS: lactobacillus rhamnosus 10,000 MMU CELLS/CAPSULE PO SCH ×2 (08:47→20:51)
[2018-11-28] MEDS: enoxaparin 40mg/0.4ml syringe SQ SCH (08:47)
[2018-11-28] MEDS: cloNIDine 0.1 mg tablet PO SCH ×3 (08:47→20:51)
[2018-11-28] MEDS: oxyCODONE/APAP 10/325mg tablet PO PRN ×3 (08:49→20:52)
[2018-11-28] MEDS: acetaminophen 325mg tablet PO PRN ×2 (10:52→18:03)
[2018-11-28 11:00] VITALS: BP 148/97
[2018-11-28] MEDS ORDERED: levoFLOXACIN 750MG TABLET PO SCH (11:00)
[2018-11-28] MEDS: LORazepam 1 MG tablet PO PRN ×2 (13:33→20:51)
[2018-11-28 18:00] VITALS: BP 148/88
--- NOTE | 2018-11-28 18:40 | NUR ---
Problems reprioritized. Patient report given, questions answered & plan of care reviewed with KATARINA Lee.
--- NOTE | 2018-11-28 20:23 | NUR ---
Patient in room [facility]. I have received report from KATARINA Anne and had the opportunity to ask questions and assume patient care. Addendum: 11/28/18 at 2023 by Rosa Kaur RN Amended: Links added.
[2018-11-28] MEDS: furosemide 20MG tablet PO SCH (20:51)
[2018-11-28] MEDS: PALIPERIDONE 3 MG TAB.ER.24 PO SCH (20:51)
[2018-11-28] MEDS: venlafaxine XR 75mg capsule (Q24H) PO SCH (20:51)
[2018-11-28] MEDS: gabapentin 400mg capsule PO SCH (20:52)
[2018-11-28 23:49] VITALS: BP 141/85
[2018-11-29] MEDS: LORazepam 1 MG tablet PO PRN ×2 (00:31→05:16)
[2018-11-29] MEDS: acetaminophen 325mg tablet PO PRN (00:31)
[2018-11-29] MEDS: oxyCODONE/APAP 10/325mg tablet PO PRN ×2 (02:53→09:34)
[2018-11-29 06:12] LABS: BASOPHILS # (AUTO) 0.1 X10'3 (0-0.2); BASOPHILS % (AUTO) 0.8 % (0-1); EOSINOPHILS # (AUTO) 0.3 X10'3 (0-0.9); EOSINOPHILS % (AUTO) 2.7 % (0-6); HEMATOCRIT 29.3 % (42.0-52.0); HEMOGLOBIN 9.8 g/dl (14.0-17.9); LYMPHOCYTES # (AUTO) 1.8 X10'3 (1.1-4.8); LYMPHOCYTES % (AUTO) 17.5 % (21-51); MEAN CORPUSCULAR HEMOGLOBIN 29.4 PG (27.0-31.0); MEAN CORPUSCULAR HGB CONC 33.5 g/dL (33.0-36.5); MEAN CORPUSCULAR VOLUME 87.9 FL (78-98); MEAN PLATELET VOLUME 7.5 FL (7.4-10.4); MONOCYTES # (AUTO) 0.7 X10'3 (0-0.9); MONOCYTES % (AUTO) 7.3 % (2-12); NEUTROPHILS # (AUTO) 7.3 X10'3 (1.8-7.7); NEUTROPHILS % (AUTO) 71.7 % (42-75); PLATELET COUNT 364 X10'3 (140-440); RED BLOOD COUNT 3.34 X10'6 (4.70-6.10); RED CELL DISTRIBUTION WIDTH 14.6 % (11.5-14.5); WHITE BLOOD COUNT 10.1 X10'3 (4.5-11.0)
--- NOTE | 2018-11-29 06:21 | NUR ---
Problems reprioritized. Patient report given, questions answered & plan of care reviewed with KATARINA Chong. Addendum: 11/29/18 at 0621 by Rosa Kaur RN Amended: Links added.
--- NOTE | 2018-11-29 06:29 | NUR ---
Patient in room [facility]. I have received report from Rosa BRAY and had the opportunity to ask questions and assume patient care.
[2018-11-29 06:32] LABS: ANION GAP 9 (8-16); BLOOD UREA NITROGEN 6 MG/DL (7-18); BUN/CREATININE RATIO 6.8 (5.4-32.0); CALCIUM 8.3 MG/DL (8.5-10.1); CHLORIDE 102 MMOL/L (99-107); CREATININE 0.88 MG/DL (0.60-1.10); GLUCOSE 104 MG/DL (70-104); MAGNESIUM 2.1 MG/DL (1.5-2.4); SODIUM 141 MMOL/L (135-145); TOTAL CARBON DIOXIDE 30.3 MMOL/L (24-32); eGFR > 90 ML/MIN
[2018-11-29] MEDS: cloNIDine 0.1 mg tablet PO SCH ×2 (07:55→13:47)
[2018-11-29] MEDS: furosemide 20MG tablet PO SCH (07:56)
[2018-11-29] MEDS: clonazePAM 1mg tablet PO SCH (07:56)
[2018-11-29] MEDS: nicotine 21mg patch - 24 hr TD SCH (07:56)
[2018-11-29] MEDS: lactobacillus rhamnosus 10,000 MMU CELLS/CAPSULE PO SCH (07:56)
[2018-11-29] MEDS: enoxaparin 40mg/0.4ml syringe SQ SCH (07:57)
[2018-11-29 08:00] VITALS: BP 147/99
[2018-11-29] MEDS ORDERED: levoFLOXACIN 750MG TABLET PO SCH (11:00)
[2018-11-29 12:00] VITALS: BP 134/87
--- NOTE | 2018-11-29 12:42 | NUR ---
Per Dr Eden, Pt's CT scan is good and he can go home on Levaquin for 1wk. Hospitalist to discharge.
[2018-11-29] MEDS ORDERED: LACT1CAP26 PO (13:15)
[2018-11-29] MEDS ORDERED: LEVO750T46 PO (13:15)
[2018-11-29] MEDS ORDERED: PER5325T PO (13:15)
[2018-11-29] MEDS ORDERED: FURO-149 PO (13:16)
--- NOTE | 2018-11-29 13:56 | NUR ---
Pt Discharge to home with his mom. pt A & O and in no evident discomfort. Mom packed and gathered all belongings. pt and mom given DC orders, both verbalized understanding of orders. Pt's IV removed intact. pt's meds e-send to pharmacy. Pt's wheeled to front of the hospital & driven by relative giving them a ride home.
== END 2018-11-29 13:56 | disposition home or self-care (01) | DRG 721 ==
LOC: SUR 3N 11-24 01:58
PROVIDERS: ADMIT Hospitalist; ATTEND Hospitalist
PROC: BW211ZZ Computerized Tomography (CT Scan) of Abdomen and Pelvis using Low Osmolar Contrast (ICD-10-PCS; 2018-11-24)
PROC: 0W9F3ZX Drainage of Abdominal Wall, Percutaneous Approach, Diagnostic (ICD-10-PCS; principal; 2018-11-25)
DX: T81.40XA Infection following a procedure, unspecified, initial encounter (principal); E66.01 Morbid (severe) obesity due to excess calories; L02.211 Cutaneous abscess of abdominal wall; L03.311 Cellulitis of abdominal wall; D64.9 Anemia, unspecified; F32.9 Major depressive disorder, single episode, unspecified; L76.34 Postprocedural seroma of skin and subcutaneous tissue following other procedure; Y83.8 Other surgical procedures as the cause of abnormal reaction of the patient, or of later complication, without mention of misadventure at the time of the procedure; Y82.8 Other medical devices associated with adverse incidents; F42.9 Obsessive-compulsive disorder, unspecified; F15.10 Other stimulant abuse, uncomplicated; F43.10 Post-traumatic stress disorder, unspecified; Z82.49 Family history of ischemic heart disease and other diseases of the circulatory system; Z80.8 Family history of malignant neoplasm of other organs or systems; Z83.3 Family history of diabetes mellitus; Y92.89 Other specified places as the place of occurrence of the external cause
CPT/HCPCS: 36415; 49406; 74176; 74177; 80048; 80053; 80202; 83540; 83550; 83605; 83735; 85025; 85610; 85730; 87040; 87070; 87077; 87081; 87186; 89051; 94760; G0378; J0692; J1170; J1650; J1956; J2060; J2405; J3370; J7030; Q9963; Q9967